=== PATIENT | male | born 1960 | race Caucasian/White ===

== ENCOUNTER 2016-10-05 20:20 | Outpatient (CLI) | payer MEDICARE ==
[~2016-10-05 20:20] MED LIST: ASP325TEC PO; DABI150C2 PO; DILT240C PO; FLEC100T2 PO
--- OUTSIDE RECORDS SUMMARY | 2016-10-05 21:21 | XMS REPORT | Continuity of Care Document ---
Author Author [facility] Organization [facility] Address Unknown Phone Unavailable Care Team Providers Care Corn Detasseler Machine Operator Name Role Phone Chuck Melgar PCP [phone] Source Comments Some departments are not documenting in the electronic medical record. If you do not see the information that you expected, contact Release of Information in the Health Information Management department at [phone] for further assistance in locating additional records.[facility] Active Allergies and Adverse Reactions No Known Allergies Current Medications Prescription Sig. Disp. Refills Start End Date Status Date aspirin 325 mg tablet Take 325 mg by mouth Active daily. diltiazem CD (CARDIZEM Take 1 Cap by mouth 30 Cap 04/20/20 Active CD) 240 mg capsule daily. 14 dabigatran (PRADAXA) 150 Take 1 Cap by mouth twice 60 Cap 05/18/20 Active mg capsule daily. 14 flecainide (TAMBOCOR) 100 Take 1 Tab by mouth twice 60 Tab Active mg tablet daily. Do not start 14 Flecainide until you have completed 21 days of twice daily Pradaxa. Active Problems Problem Noted Date HTN (hypertension) 04/16/2014 Atrial fibrillation (HCC) 04/16/2014 Overview: [facility]20147[facility], Moderate concentric LV Hypertrophy, Unable to assess EF due to suboptimal windows. 03/02/14-Holter ECG Report- Atrial Fibrillation/Atrial Flutter with Tachycardia (rates as high as 175 bpm) and Bradycardic (rates as low as 35 bpm) The average heart rate was 65 bpm. 232 pauses greater than 2.0 seconds with the longest being 3.09 seconds. Isolate PVC's, Isolated Couplets, 4 V-Runs with the longest being 10 beats @ 189 bpm. Isolated runs of V-Bigeminy with the longest being 10 seconds. No symptoms noted. 04/29/14 Regadenoson Thallium: SUMMARY/OPINION: 1. This study is normal and represents low probability for significant inducible myocardial ischemia. 2. There are no perfusion abnormalities identified on this study. 3. The calculated LVEF is reduced & likely underestimated as a result of the atrial fibrillation and difficulty gating this study as noted above. 4. All myocardial segments appear viable. 5. High risk scintigraphic features are absent. 6. There are no prior studies available for direct comparison. LIZZY (obstructive sleep apnea) 04/16/2014 Social History Tobacco Use Types Packs/Day Years Used Date Never Smoker Smokeless Tobacco: Never Used Alcohol Use Drinks/Week oz/Week Comments No Last Filed Vital Signs Vital Sign Reading Time Taken Blood Pressure 118/80 05/18/2014 11:14 AM CDT Pulse 105 05/18/2014 11:14 AM CDT Temperature - - Respiratory Rate - - Height 1.778 m (5' 10") 05/18/2014 11:10 AM CDT Weight 199.9 kg (440 lb 11.2 oz) 05/18/2014 11:10 AM CDT Body Mass Index 63.23 05/18/2014 11:10 AM CDT Oxygen Saturation - - Plan of Care Health Maintenance Due Date Last Done Comments Physical (Comprehensive) 1965 Exam Pertussis Vaccine 1969 Tetanus Vaccine 1975 Colorectal Cancer 2008 Screening Influenza Vaccine 05/10/2016 Results from Last 3 Months Not on file
== END 2016-10-06 06:45 | disposition home or self-care (01) ==
LOC: SLEEP 20:20
PROVIDERS: ATTEND Nurse Practitioner
DX: G47.10 Hypersomnia, unspecified (principal); I10 Essential (primary) hypertension
CPT/HCPCS: 95810

== ENCOUNTER → 2016-12-10 | Outpatient (CLI) | payer MEDICARE ==
--- NOTE | 2016-12-10 15:56 | Diagnostic Imaging Report ---
Sacrum and coccyx. INDICATION: Tailbone pain. FINDINGS: AP and lateral views were obtained. There are no prior studies available for comparison. This exam is less than optimal due to the patient's body habitus. There is no obvious fracture, dislocation, or acute bony abnormality evident. There is moderate symmetrical sclerosis of the sacroiliac joints. The soft tissues are unremarkable. IMPRESSION: There is no evidence for an acute bony abnormality on this suboptimal exam. Dictated by: Dictated on workstation # [id number]
== END ==
LOC: RAD 13:41
PROVIDERS: ATTEND Nurse Practitioner
DX: M53.3 Sacrococcygeal disorders, not elsewhere classified (principal)
CPT/HCPCS: 72220

== ENCOUNTER → 2017-04-22 | Outpatient (CLI) | payer MEDICARE, OTHER ==
--- NOTE | 2017-04-22 14:29 | Diagnostic Imaging Report ---
Retroperitoneal ultrasound. INDICATION: Renal insufficiency. There are no previous exams available for comparison. The study is less than optimal due to patient's body habitus. By history the patient has a diagnosis of right renal agenesis. The left kidney was visualized although not well imaged. The left kidney measured 12.0 x 7.9 x 6.3 cm. There is no sign of a solid renal mass or of hydronephrosis involving the left kidney. The renal cortex is normal in thickness and echogenicity. The bladder was not visualized. IMPRESSION: 1. There is no evidence for a solid renal mass or for an acute abnormality of the left kidney. The left kidney was difficult to visualize, however, due to the patient's body habitus. 2. By history the right kidney is congenitally absent. 3. The bladder was not identified. Dictated by: Dictated on workstation # [id number]
== END ==
LOC: RAD 13:13
PROVIDERS: ATTEND Family Medicine
DX: N28.9 Disorder of kidney and ureter, unspecified (principal); Q60.0 Renal agenesis, unilateral
CPT/HCPCS: 76770

== ENCOUNTER → 2017-04-22 | Outpatient (CLI) | payer MEDICARE, OTHER | LOC: CARD 11:29 | PROVIDERS: ATTEND Nurse Practitioner Family | DX: I48.91 Unspecified atrial fibrillation (principal) ==

== ENCOUNTER → 2017-04-25 | Outpatient (CLI) | payer MEDICARE | LOC: CARD 09:07 | PROVIDERS: ATTEND Internal Medicine Cardiovascular Disease | DX: I48.91 Unspecified atrial fibrillation (principal); I10 Essential (primary) hypertension; R00.2 Palpitations; G47.33 Obstructive sleep apnea (adult) (pediatric) | CPT/HCPCS: 93306 ==

== ENCOUNTER 2018-04-16 03:17 | Emergency (ER) | payer MEDICARE ==
[~2018-04-16] VITALS: Ht 162.6 cm; Wt 181.4 kg
--- OUTSIDE RECORDS SUMMARY | 2018-04-16 03:23 | XMS REPORT | Clinical Summary ---
Author Author [facility] Organization [facility] Address Unknown Phone Unavailable Care Team Providers Care Conductor/Engineer Name Role Phone Chuck Melgar DO PCP Source Comments Some departments are not documenting in the electronic medical record. If you do not see the information that you expected, contact Release of Information in the Health Information Management department at [phone] for further assistance in locating additional records.[facility] Allergies No Known Allergies Current Medications Prescription Sig. [...] (hypertension) 04/16/2014 Atrial fibrillation (HCC) 04/16/2014 Overview: [facility]20148705[facility], Moderate concentric LV Hypertrophy, [...] direct comparison. LIZZY (obstructive sleep apnea) 04/16/2014 Family History Medical History Relation Name Comments Coronary Artery Disease Brother Coronary Artery Disease Father Stroke Father Coronary Artery Disease Sister Relation Name Status Comments Brother Alive Father Alive Sister Alive Social History Tobacco Use Types Packs/Day Years Used Date Never Smoker Smokeless Tobacco: Never Used Alcohol Use Drinks/Week oz/Week Comments No Sex Assigned at Date Recorded Not on file Last Filed Vital Signs Vital Sign Reading Time Taken Blood Pressure 118/80 05/18/2014 11:14 AM CDT Pulse 105 05/18/2014 11:14 AM CDT Temperature - - Respiratory Rate - - Oxygen Saturation - - Inhaled Oxygen - - Concentration Weight 199.9 kg (440 lb 11.2 oz) 05/18/2014 11:10 AM CDT Height 177.8 cm (5' 10") 05/18/2014 11:10 AM CDT Body Mass Index 63.23 05/18/2014 11:10 AM CDT Plan of Treatment Health Maintenance Due Date Last Done Comments HEPATITIS C SCREENING 1958 PHYSICAL (COMPREHENSIVE) 1965 EXAM PERTUSSIS VACCINE 1969 HIV SCREENING 1973 TETANUS VACCINE 1975 COLORECTAL CANCER 2008 SCREENING SHINGLES RECOMBINANT 2008 VACCINE (1 of 2) INFLUENZA VACCINE 06/09/2018 Results Not on filefrom Last 3 Months
--- OUTSIDE RECORDS SUMMARY | 2018-04-16 03:23 | XMS REPORT ---
Author Author ASHLIE WISE [facility] Address Unknown Care Team Providers Care Mailhouse Operator Name Role Phone ASHLIE WISE Unavailable PROBLEMS Type Condition ICD9-CM Code [id number] Code Onset Dates Condition Status SNOMED Code Problem Dental examination Z01.20 Active 711120511 Assessment Dental examination Z01.20 Apr, Active [id number] ALLERGIES Substance Reaction Event Type Date Status N.K.D.A. Unknown Non Drug Allergy Apr, Unknown SOCIAL HISTORY No smoking Hx information available PLAN OF CARE VITAL SIGNS Blood pressure systolic 126 mmHg 2016-04-26 Blood pressure diastolic 88 mmHg 2016-04-26 MEDICATIONS Medication Instructions Dosage Frequency Start Date End Date Duration Status SAVision Active RESULTS No Results PROCEDURES Procedure Date Ordered Related Diagnosis Body Site INTRAORL-PERIAPICAL 1 FILM 50125 Apr 26, 2016 BITEWING - SINGLE FILM Apr 26, 2016 IMMUNIZATIONS No Known Immunizations
--- OUTSIDE RECORDS SUMMARY | 2018-04-16 03:23 | XMS REPORT ---
Author Author ASHLIE WISE [facility] Address Unknown Care Team Providers Care Building Stonecutter Name Role Phone ASHLIE WISE Unavailable PROBLEMS Unknown Problems ALLERGIES No Information ENCOUNTERS Encounter Location Date Diagnosis [facility] [place] [address] [id number] [place] [id number] Aug, [facility] [address] [id number], [place] [address] Aug, [facility] [address] [id number] [id number] Apr, Dental examination Z01.20 [facility] [address] [id number][place] [id number] Mar, Dental examination Z01.20 [facility] [address] [id number] [id number] Feb, Dental examination Z01.20 [facility] [address] [id number] [id number] January, Dental caries K02.9 [facility] [address] [id number][place] [id number] Dec, Dental examination Z01.20 IMMUNIZATIONS No Known Immunizations SOCIAL HISTORY Never Assessed REASON FOR VISIT TE PLAN OF CARE VITAL SIGNS MEDICATIONS Unknown Medications RESULTS No Results PROCEDURES No Known procedures INSTRUCTIONS MEDICATIONS ADMINISTERED No Known Medications MEDICAL (GENERAL) HISTORY Type Description Date Medical History Arthirits Medical History High Blood Pressure Surgical History Left Knee replaced 30 years ago
--- OUTSIDE RECORDS SUMMARY | 2018-04-16 03:23 | XMS REPORT ---
Author Author ASHLIE WISE [facility] Address Unknown Care Team Providers Care Strike Out Machine Operator Name Role Phone ASHLIE WISE Unavailable PROBLEMS Type Condition ICD9-CM Code BGI46-PV Code Onset Dates Condition Status SNOMED Code Problem Dental examination Z01.20 Active [id number] ALLERGIES Unknown Allergies SOCIAL HISTORY No smoking Hx information available PLAN OF CARE VITAL SIGNS MEDICATIONS Unknown Medications RESULTS No Results PROCEDURES No Known procedures IMMUNIZATIONS No Known Immunizations
--- OUTSIDE RECORDS SUMMARY | 2018-04-16 03:24 | XMS REPORT | Continuity of Care Document ---
Author Author [facility] Organization [facility] Address Unknown Phone Unavailable Allergies Active Description Code Type Severity Reaction Onset Reported/Identified Relationship to Patient Clinical Status Yes No Known Drug Allergies [id number] Drug Allergy Unknown N/A 06/28/2014 Medications There is no data. Problems Date Dx Coded Attending Type Code Diagnosis Diagnosed By 06/28/2014 RALPH BERGERON MD Ot 272.4 HYPERLIPIDEMIA NEC/NOS 06/28/2014 RALPH BERGERON MD Ot 278.01 MORBID OBESITY 06/28/2014 RALPH BERGERON MD Ot 327.23 OBSTRUCTIVE SLEEP APNEA (ADULT) (PEDIATR 06/28/2014 RALPH BERGERON MD Ot 397.0 TRICUSPID VALVE DISEASE 06/28/2014 RALPH BERGERON MD Ot 401.9 HYPERTENSION NOS 06/28/2014 RALPH BERGERON MD Ot 424.0 MITRAL VALVE DISORDER 06/28/2014 RALPH BERGERON MD Ot 427.31 ATRIAL FIBRILLATION 06/28/2014 RALPH BERGERON MD Ot 496 CHR AIRWAY OBSTRUCT NEC 06/28/2014 RALPH BERGERON MD Ot V58.61 ANTICOAGULANTS,LT,CURRENT USE 06/28/2014 RALPH BERGERON MD Ot V58.69 OTH MED,LT,CURRENT USE 06/28/2014 RALPH BERGERON MD Ot V85.44 BODY MASS INDEX 60.0-69.9, ADULT 08/31/2016 DELLA BURNETT DO Ot 274.9 GOUT NOS 08/31/2016 DELLA BURNETT DO Ot 719.47 JOINT PAIN-ANKLE 08/31/2016 DELLA BURNETT DO Ot 278.00 OBESITY, NOS 08/31/2016 DELLA BURNETT DO C Ot 288.60 LEUKOCYTOSIS, UNSPECIFIED 08/31/2016 LEX KHALIL DELLA C Ot 401.9 HYPERTENSION NOS 08/31/2016 EATDELLA VILLATORO DO Ot 427.9 CARDIAC DYSRHYTHMIA NOS 08/31/2016 DELLA BURNETT DO Ot V70.0 ROUTINE MEDICAL EXAM 09/27/2016 EATON DO, DELLA Llanos Ot 274.9 GOUT NOS 09/27/2016 EATON DO, DELLA Llanos Ot 719.47 JOINT PAIN-ANKLE 09/27/2016 EATON DO, DELLA Llanos Ot 278.00 OBESITY, NOS 09/27/2016 EATON DO, DELLA Llanos Ot 288.60 LEUKOCYTOSIS, UNSPECIFIED 09/27/2016 EATON DO, DELLA Llanos Ot 401.9 HYPERTENSION NOS 09/27/2016 EATON DO, DELLA Llanos Ot 427.9 CARDIAC DYSRHYTHMIA NOS 09/27/2016 EATON DO, DELLA lLanos Ot V70.0 ROUTINE MEDICAL EXAM 10/06/2016 KAMRON JESSICA COMPENSATION COORDINATOR Ot G47.10 HYPERSOMNIA, UNSPECIFIED 10/06/2016 KAMRON JESSICA COMPENSATION COORDINATOR Ot I10 ESSENTIAL (PRIMARY) HYPERTENSION 10/08/2016 KAMRON JESSICA COMPENSATION COORDINATOR Ot G47.10 HYPERSOMNIA, UNSPECIFIED 10/08/2016 KAMRON JESSICA COMPENSATION COORDINATOR Ot I10 ESSENTIAL (PRIMARY) HYPERTENSION 01/14/2017 MARIA INES JEFFRIES COMPENSATION COORDINATOR Ot M53.3 SACROCOCCYGEAL DISORDERS, NOT ELSEWHERE 02/08/2017 MARIA INES JEFFRIES COMPENSATION COORDINATOR Ot M53.3 SACROCOCCYGEAL DISORDERS, NOT ELSEWHERE 04/16/2017 EATON DODELLA Ot 274.9 GOUT NOS 04/16/2017 EATON DO, DELLA Llanos Ot 719.47 JOINT PAIN-ANKLE 04/16/2017 EATON DO, DELLA Llanos Ot 278.00 OBESITY, NOS 04/16/2017 EATON DO, DELLA Llanos Ot 288.60 LEUKOCYTOSIS, UNSPECIFIED 04/16/2017 EATON DODELLA Ot 401.9 HYPERTENSION NOS 04/16/2017 EATON DO, DELLA Llanos Ot 427.9 CARDIAC DYSRHYTHMIA NOS 04/16/2017 EATON DO, DELLA Llanos Ot V70.0 ROUTINE MEDICAL EXAM 04/16/2017 MARIA INES JEFFRIES COMPENSATION COORDINATOR Ot M53.3 SACROCOCCYGEAL DISORDERS, NOT ELSEWHERE 04/22/2017 TANESHAER ALVARO KHALIL Ot N18.9 CHRONIC KIDNEY DISEASE, UNSPECIFIED 04/22/2017 EATON DO, DELLA Llanos Ot 274.9 GOUT NOS 04/22/2017 EATON DO, DELLA Llanos Ot 719.47 JOINT PAIN-ANKLE 04/22/2017 DELLA BURNETT DO Ot 278.00 OBESITY, NOS 04/22/2017 EATDELLA VILLATORO DO Ot 288.60 LEUKOCYTOSIS, UNSPECIFIED 04/22/2017 DELLA BURNETT DO Ot 401.9 HYPERTENSION NOS 04/22/2017 HAKEEMON DELLA KHALIL Ot 427.9 CARDIAC DYSRHYTHMIA NOS 04/22/2017 LEX DELLA KHALIL Ot V70.0 ROUTINE MEDICAL EXAM 04/22/2017 MARIA INES JEFFRIES COMPENSATION COORDINATOR Ot M53.3 SACROCOCCYGEAL DISORDERS, NOT ELSEWHERE 04/22/2017 ORENDER DO, ALVARO S Ot N18.9 CHRONIC KIDNEY DISEASE, UNSPECIFIED 04/24/2017 MARIA INES JEFFRIES COMPENSATION COORDINATOR Ot M53.3 SACROCOCCYGEAL DISORDERS, NOT ELSEWHERE 04/24/2017 ORENDER DO, ALVARO S Ot N28.9 DISORDER OF KIDNEY AND URETER, UNSPECIFI 04/24/2017 ORENDER DO, ALVARO S Ot Q60.0 RENAL AGENESIS, UNILATERAL 04/24/2017 ROSA LAZARO Ot I48.91 UNSPECIFIED ATRIAL FIBRILLATION 04/25/2017 MARIA INES JEFFRIES COMPENSATION COORDINATOR Ot M53.3 SACROCOCCYGEAL DISORDERS, NOT ELSEWHERE 04/25/2017 ORENDER DO, ALVARO S Ot N28.9 DISORDER OF KIDNEY AND URETER, UNSPECIFI 04/25/2017 ORENDER DO, ALVARO S Ot Q60.0 RENAL AGENESIS, UNILATERAL 04/25/2017 ROSA LAZARO Ot I48.91 UNSPECIFIED ATRIAL FIBRILLATION 04/28/2017 ORENDER DO, ALVARO S Ot N28.9 DISORDER OF KIDNEY AND URETER, UNSPECIFI 04/28/2017 ORENDER DO, ALVARO S Ot Q60.0 RENAL AGENESIS, UNILATERAL 05/10/2017 DELLA BURNETT DO Ot 274.9 GOUT NOS 05/10/2017 DELLA BURNETT DO Ot 719.47 JOINT PAIN-ANKLE 05/10/2017 DELLA BURNETT DO Ot 278.00 OBESITY, NOS 05/10/2017 DELLA BURNETT DO Ot 288.60 LEUKOCYTOSIS, UNSPECIFIED 05/10/2017 DELLA BURNETT DO Ot 401.9 HYPERTENSION NOS 05/10/2017 DELLA BURNETT DO Ot 427.9 CARDIAC DYSRHYTHMIA NOS 05/10/2017 DELLA BURNETT DO Ot V70.0 ROUTINE MEDICAL EXAM 05/10/2017 MARIA INES JEFFRIES Bailee CRANE Ot M53.3 SACROCOCCYGEAL DISORDERS, NOT ELSEWHERE 05/10/2017 ADRIANROGERALLISON BOUDREAUX DOLINE S Ot N28.9 DISORDER OF KIDNEY AND URETER, UNSPECIFI 05/10/2017 ADRIANNDER , ALVARO S Ot Q60.0 RENAL AGENESIS, UNILATERAL 05/10/2017 ROSA LAZARO Ot I48.91 UNSPECIFIED ATRIAL FIBRILLATION 05/15/2017 ADRIANNDER DO, ALVARO S Ot N28.9 DISORDER OF KIDNEY AND URETER, UNSPECIFI 05/15/2017 ADRIANNDJANUSZ KHALIL ALVARO S Ot Q60.0 RENAL AGENESIS, UNILATERAL 05/17/2017 RALPH BERGERON MD Ot G47.33 OBSTRUCTIVE SLEEP APNEA (ADULT) (PEDIATR 05/17/2017 RALPH BERGERON MD Ot I10 ESSENTIAL (PRIMARY) HYPERTENSION 05/17/2017 RALPH BERGERON MD Ot I48.91 UNSPECIFIED ATRIAL FIBRILLATION 05/17/2017 RALPH BERGERON MD Ot R00.2 PALPITATIONS 06/06/2017 TANESHASTARR BOUDREAUX DOQUELINE S Ot N28.9 DISORDER OF KIDNEY AND URETER, UNSPECIFI 06/06/2017 STARR SAMANIEGO DOQUELINE S Ot Q60.0 RENAL AGENESIS, UNILATERAL 06/06/2017 RALPH BERGERON MD Ot G47.33 OBSTRUCTIVE SLEEP APNEA (ADULT) (PEDIATR 06/06/2017 RALPH BERGERON MD Ot I10 ESSENTIAL (PRIMARY) HYPERTENSION 06/06/2017 RALPH BERGERON MD Ot I48.91 UNSPECIFIED ATRIAL FIBRILLATION 06/06/2017 RALPH BERGERON MD Ot R00.2 PALPITATIONS 06/07/2017 ROSA LAZARO Ot I48.91 UNSPECIFIED ATRIAL FIBRILLATION 07/01/2017 ROSA LAZARO Ot I48.91 UNSPECIFIED ATRIAL FIBRILLATION Procedures There is no data. Results There is no data. Encounters ACCT No. Visit Date/Time Discharge Status Pt. Type Provider Facility Loc./Unit Complaint [id number] 04/25/2017 09:07:00 04/25/2017 23:59:59 CLS Outpatient RALPH BERGERON MD [facility] CARD I48.91 [id number] 04/22/2017 13:13:00 04/22/2017 23:59:59 CLS Outpatient ALVARO SAMANIEGO DO [facility] RAD RENAL INSUFFIENCY [id number] 04/22/2017 11:29:00 04/22/2017 23:59:59 CLS Outpatient ROSA LAZARO CIGARETTE PACKER [facility] CARD HX ATRIAL FIB [id number] 02/20/2017 10:16:00 02/20/2017 23:59:59 CLS Preadmit ALVARO SAMANIEGO DO [facility] RAD RENAL INSUFFICIENCY [id number] 12/10/2016 13:41:00 12/10/2016 23:59:59 CLS Outpatient MARIA INES JEFFRIES COMPENSATION COORDINATOR [facility] RAD SACRUM/COCCYX PAIN [id number] 10/05/2016 20:20:00 10/06/2016 06:45:00 DIS Outpatient KAMRON JESSICA COMPENSATION COORDINATOR [facility] SLEEP OBSERVED APNEAS, SNORING, HYPERTENSION [id number] 06/28/2014 07:36:00 06/28/2014 14:25:00 DIS Outpatient RALPH BERGERON MD [facility] CATH AFIB, [id number] 02/15/2014 15:38:00 02/15/2014 23:59:59 CLS Outpatient DELLA BURNETT DO [facility] CARD ARRHYTHMIA,HTN,OBESITY [id number] 02/05/2013 14:43:00 02/05/2013 23:59:59 CLS Outpatient DELLA BURNETT DO [facility] RAD GOUT, RT FOOT ANKLE PAIN FOR SEVERAL WEEKS [id number] 05/28/2017 08:33:00 05/28/2017 23:59:00 DIS Outpatient CHAZ ROBERTSON 08/201704/02/2018 09:19:22 04/02/2018 23:59:59 CLS Outpatient Alvaro Samaniego
[2018-04-16] MEDS ORDERED: KETOROLAC 30 MG/ML VIAL IVP STA (03:26)
[2018-04-16] MEDS ORDERED: LACTATED RINGERS 1,000 ML IV ONE (03:26)
[2018-04-16] MEDS ORDERED: ONDANSETRON 4 MG/2 ML (SDV) Z0FRAN IVP ONE (03:30)
[2018-04-16] MEDS ORDERED: HYOSCYAMINE 0.125 MG (LEVSIN) TAB SL ONE (03:30)
[2018-04-16 04:00] LABS: BASOPHILS % (AUTO) 0 % (0-10); EOSINOPHILS % (AUTO) 0 % (0-10); HEMATOCRIT 47 % (40-54); HEMOGLOBIN 16.5 G/DL (13.3-17.7); LYMPHOCYTES % (AUTO) 4 % (12-44); MEAN CORPUSCULAR HEMOGLOBIN 30 PG (25-34); MEAN CORPUSCULAR HGB CONC 35 G/DL (32-36); MEAN CORPUSCULAR VOLUME 84 FL (80-99); MEAN PLATELET VOLUME 11.8 FL (7.4-10.4); MONOCYTES # (AUTO) 1.5 X 10^3 (0.0-1.0); MONOCYTES % (AUTO) 6 % (0-12); NEUTROPHILS # (AUTO) 21.4 X 10^3 (1.8-7.8); NEUTROPHILS % (AUTO) 89 % (42-75); PLATELET COUNT 327 10^3/uL (130-400); RED BLOOD COUNT 5.55 10^6/uL (4.35-5.85); RED CELL DISTRIBUTION WIDTH 14.2 % (10.0-14.5)
[2018-04-16 04:13] LABS: INR 1.4 (0.8-1.4); PROTHROMBIN TIME PATIENT 17.3 SEC (12.2-14.7)
[2018-04-16 04:24] LABS: ALANINE AMINOTRANSFERASE 225 U/L (0-55); ALBUMIN 4.2 GM/DL (3.2-4.5); ALKALINE PHOSPHATASE 362 U/L (40-136); AMYLASE 41 U/L (25-125); BILIRUBIN,TOTAL 4.3 MG/DL (0.1-1.0); BUN/CREATININE RATIO 15; CALCIUM 11.1 MG/DL (8.5-10.1); CARBON DIOXIDE 22 MMOL/L (21-32); CHLORIDE 95 MMOL/L (98-107); CREATININE SERUM 2.14 MG/DL (0.60-1.30); GFR ESTIMATED 32; GLUCOSE 210 MG/DL (70-105); LIPASE 95 U/L (8-78); POTASSIUM 3.6 MMOL/L (3.6-5.0); SODIUM 137 MMOL/L (135-145); TOTAL PROTEIN 8.7 GM/DL (6.4-8.2)
[2018-04-16 04:30] LABS: BAND NEUTROPHILS 3 %; BASOPHILS % (MANUAL) 0 %; EOSINOPHILS % (MANUAL) 0 %; LYMPHOCYTES % (MANUAL) 4 %; MONOCYTES % (MANUAL) 5 %; NEUTROPHILS % (MANUAL) 88 %; RBC MORPH NORMAL
[2018-04-16] MEDS ORDERED: fentaNYL INJECTION 100 MCG/2 ML AMP ONE (04:32)
[2018-04-16] MEDS ORDERED: NS IV 1000 ML 1,000 ML IV ONE (04:48)
--- NOTE | 2018-04-16 05:27 | ED Abdominal Pain ---
General Chief Complaint: Abdominal/GI Problems Stated Complaint: VOMITING,SOB Nursing Triage Note: VERBALIZED ABDOMINAL PAIN X1 WEEK. STATES WORSENED TODAY. VOMITTING "ALOT" Sepsis Screen: No Definite Risk Source of Information: Patient History of Present Illness Date Seen by Provider: Apr 16, 2018 Time Seen by Provider: 03:15 Initial Comments PT ARRIVES VIA POV FROM HOME, NEEDS WHEELCHAIR TO GET OUT OF VEHICLE AND INTO ER PT STATES "I BEEN SICK" "MY STOMACH HERE ( POINTS TO MID AND UPPER ABDOMEN), VOMITING, SHORT OF BREATH" STATES HE HAS BEEN SICK FOR A WEEK C/O SEVERE UPPER ABDOMINAL PAIN C/O NAUSEA AND VOMITING --HAS VOMITED "AT LEAST 24 TIMES" IN LAST 24 HOURS. STATES HE CANNOT KEEP ANYTHING DOWN--VOMITS EVERY TIME HE TRIES TO EAT OR DRINK- -AT [employer], 2 EGGS, BREAD AND PIECE OF CHICKEN AROUND 1900 TONIGHT AND THREW IT ALL BACK UP HAD DIARRHEA X 1 TODAY. HAS SUBJECTIVE FEVER, PROFUSE SWEATING AND CHILLS ALL WEEK--HAS NOT CHECKED TEMPERATURE AT ANY TIME, NOR TAKEN ANYTHING FOR FEVER OR PAIN HAS HAD DECREASED URINE OUTPUT AND URINE HAS BEEN VERY DARK, BUT NO PAIN ON URINATION NO CHEST PAIN STATES HE IS SHORT OF BREATH, ESPECIALLY WHEN PAIN IS SEVERE C/O CRAMPING IN HIS BACK AND ALSO IN RLQ NO HISTORY OF SIMILAR NO KNOWN SICK CONTACTS OR SUSPICIOUS FOODS. ONLY PRIOR ABDOMINAL SURGERY IS VENTRAL HERNIA REPAIR WITH MESH YEARS AGO. PT HAS HISTORY OF CHRONIC ATRIAL FIBRILLATION AND IS ON ANTICOAGULANT--PT DOES NOT KNOW NAME OF MEDICATION ( PT IS ON PRADAXA, FLECANIDE AND DILTIAZEM, PER MED RECONCILIATION) PCP: DR. MEAD PORTFOLIO ADMINISTRATOR: DR. BERGERON Allergies and Home Medications Allergies Coded Allergies: No Known Drug Allergies (Unverified , 06/28/14) Home Medications Dabigatran Etexilate Mesylate 150 Mg Capsule, 150 MG PO BID, (Reported) Diltiazem Hcl 240 Mg Cap.sr.24h, 240 MG PO DAILY, (Reported) Flecainide Acetate 100 Mg Tablet, 100 MG PO BID, (Reported) Patient Home Medication List Home Medication List Reviewed: Yes Review of Systems Constitutional: see HPI, chills, diaphoresis, fever, weakness Respiratory: See HPI, Shortness of Air, SOA With Exertion, SOA at Rest Cardiovascular: Denies Chest Pain, Denies Edema, Denies Lightheadedness, Denies Palpitations, Denies Syncope Gastrointestinal: See HPI, Abdominal Pain, Diarrhea, Nausea, Poor Appetite, Poor Fluid Intake, Vomiting Genitourinary: See HPI Musculoskeletal: no symptoms reported, back pain Skin: no symptoms reported Psychiatric/Neurological: No Symptoms Reported Endocrine: No Symptoms Reported Hematologic/Lymphatic: No Symptoms Reported Past Omknbda-Kzasek-Myikiq Hx Patient Social History Alcohol Use: Denies Use Recreational Drug Use: No Smoking Status: Never a Smoker Recent Foreign Travel: No Contact w/Someone Who Travel: No Recent Infectious Disease Expo: No Physical Abuse: No Sexual Abuse: No Mistreated: No Past Medical History Surgeries: Yes (VENTRAL HERNIA REPAIR WITH MESH; OPEN LEFT KNEE SURGERY) Abdominal, Orthopedic Respiratory: No Cardiac: Yes Atrial Fibrillation, Hypertension Neurological: No Genitourinary: No Gastrointestinal: Yes Abdominal Hernia Musculoskeletal: No Endocrine: Yes (MORBID OBESITY) Cancer: No Psychosocial: No Nursing Suicide Risk Score: 0 Integumentary: No Blood Disorders: No Physical Exam Vital Signs Vital Signs - First Documented 04/16/18 04/16/18 03:20 03:50 Temp 98.0 Pulse 128 Resp 20 B/P (MAP) 128/100 (109) Pulse Ox 92 O2 Delivery Room Air O2 Flow Rate 2.00 Capillary Refill : Less Than 3 Seconds Height/Weight/BMI Height: 5'4.00" Weight: 400lbs. oz. 181.686769ou; BMI Method:Stated General Appearance: obese (MORBIDLY OBESE. MOAINING VERY LOUDLY, ROLLING FROM SIDE TO SIDE, CANNOT GET COMFORTABLE. MILD TO MODERATELY DYSPNEIC. ) HEENT: PERRL/EOMI, other (ORAL MUCOSA DRY) Respiratory: normal breath sounds (BUT DIMINISHED IN BASES), respiratory distress (MILD TO MODERATE DYSPNEA) Cardiovascular: no murmur, tachycardia, irregularly irregular Gastrointestinal: other (OBESE, WITH LARGE PANNUS DOWN TO KNEES AND MORE ON RIGHT SIDE. UPPER ABDOMEN DIFFUSELY TENDER, ESPECIALLY IN MID UPPER ABDOMEN. BOWEL SOUNDS RARE AND HIGH-PITCHED. UPPER ABDOMEN FEELS FIRM,BUT VERY DIFFICULT EXAM DUE TO BODY HABITUS. ) Extremities: pedal edema (TRACE BILATERALLY), slow capillary refill (IN HANDS AND FEET--BOTH ARE COOL. 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, no motor/sensory deficits, alert, oriented x 3 Skin: normal color, damp (AND WARM) Focused Exam Lactate Level 04/16/18 03:45: Lactic Acid Level 2.92*H 04/16/18 05:45: Lactic Acid Level 3.47*H Lactic Acid Level Laboratory Tests Test 04/16/18 03:45 04/16/18 05:45 Lactic Acid Level 2.92 MMOL/L (0.50-2.00) *H 3.47 MMOL/L (0.50-2.00) *H Progress/Results/Core Measures Results/Orders Lab Results Laboratory Tests Test 04/16/18 03:45 04/16/18 05:45 Range/Units White Blood Count 24.0 H 4.3-11.0 10^3/uL Red Blood Count 5.55 4.35-5.85 10^6/uL Hemoglobin 16.5 13.3-17.7 G/DL Hematocrit 47 40-54 % Mean Corpuscular Volume 84 80-99 FL Mean Corpuscular Hemoglobin 30 25-34 PG Mean Corpuscular Hemoglobin Concent 35 32-36 G/DL Red Cell Distribution Width 14.2 10.0-14.5 % Platelet Count 327 130-400 10^3/uL Mean Platelet Volume 11.8 H 7.4-10.4 FL Neutrophils (%) (Auto) 89 H 42-75 % Lymphocytes (%) (Auto) 4 L 12-44 % Monocytes (%) (Auto) 6 0-12 % Eosinophils (%) (Auto) 0 0-10 % Basophils (%) (Auto) 0 0-10 % Neutrophils # (Auto) 21.4 H 1.8-7.8 X 10^3 Lymphocytes # (Auto) 1.0 1.0-4.0 X 10^3 Monocytes # (Auto) 1.5 H 0.0-1.0 X 10^3 Eosinophils # (Auto) 0.0 0.0-0.3 10^3/uL Basophils # (Auto) 0.0 0.0-0.1 10^3/uL Neutrophils % (Manual) 88 % Lymphocytes % (Manual) 4 % Monocytes % (Manual) 5 % Eosinophils % (Manual) 0 % Basophils % (Manual) 0 % Band Neutrophils 3 % Blood Morphology Comment NORMAL Prothrombin Time 17.3 H 12.2-14.7 SEC INR Comment 1.4 0.8-1.4 Activated Partial Thromboplast Time 35 24-35 SEC Sodium Level 137 135-145 MMOL/L Potassium Level 3.6 3.6-5.0 MMOL/L Chloride Level 95 L 98-107 MMOL/L Carbon Dioxide Level 22 21-32 MMOL/L Anion Gap 20 H 5-14 MMOL/L Blood Urea Nitrogen 33 H 7-18 MG/DL Creatinine 2.14 H 0.60-1.30 MG/DL Estimat Glomerular Filtration Rate 32 BUN/Creatinine Ratio 15 Glucose Level 210 H 70-105 MG/DL Lactic Acid Level 2.92 *H 3.47 *H 0.50-2.00 MMOL/L Calcium Level 11.1 H 8.5-10.1 MG/DL Corrected Calcium 10.9 H 8.5-10.1 MG/DL Total Bilirubin 4.3 H 0.1-1.0 MG/DL Aspartate Amino Transf (AST/SGOT) 191 H 5-34 U/L Alanine Aminotransferase (ALT/SGPT) 225 H 0-55 U/L Alkaline Phosphatase 362 H 40-136 U/L Troponin I < 0.30 <0.30 NG/ML Total Protein 8.7 H 6.4-8.2 GM/DL Albumin 4.2 3.2-4.5 GM/DL Amylase Level 41 25-125 U/L Lipase 95 H 8-78 U/L My Orders Orders - LONNY ZAMUDIO DO Saline Lock/Iv-Start (04/16/18 03:26) Monitor-Rhythm Ecg Trace Only (04/16/18 03:) Amylase (04/16/18:) Cbc With Automated Diff (04/16/18:) Comprehensive Metabolic Panel (04/16/18:) Lactic Acid Analyzer (04/16/18:) Lipase (04/16/18:) Protime With Inr (04/16/18:) Partial Thromboplastin Time (04/16/18:) Troponin I (04/16/18:) Ua Culture If Indicated (04/16/18:) Blood Culture (04/16/18:) Saline Lock/Iv-Start (04/16/18 03:26) Lactated Ringers (Lr 1000 Ml Iv Solution (8/8/18 03:26) Ondansetron Injection (Zofran Injectio (04/16/18 03:30) Hyoscyamine Sl Tablet (Levsin Sl Tablet) (04/16/18 03:30) Ketorolac Injection (Toradol Injection) (04/16/18 03:26) Manual Differential (04/16/18 03:45) Fentanyl Injection (Sublimaze Injection (04/16/18 04:32) Saline Lock/Iv-Start (04/16/18 04:48) Ns Iv 1000 Ml (Sodium Chloride 0.9%) (04/16/18 04:48) Fentanyl Injection (Sublimaze Injection (04/16/18 05:31) Ekg Tracing (04/16/18 05:31) O2 (04/16/18 05:31) Medications Given in ED Current Medications Medications Dose Ordered Sig/Magaly Route Start Time Stop Time Status Last Admin Dose Admin Fentanyl Citrate 100 mcg STK-MED ONCE .ROUTE 04/16/18 04:32 04/16/18 04:35 DC 04/16/18 04:44 100 MCG Hyoscyamine Sulfate 0.25 mg ONCE ONCE SL 04/16/18 03:30 04/16/18 03:31 DC 04/16/18 03:30 0.25 MG Lactated Ringer's 1,000 ml @ 0 mls/hr Q0M ONCE IV 04/16/18 03:26 04/16/18 03:29 DC 04/16/18 03:30 0 MLS/HR Ondansetron HCl 8 mg ONCE ONCE IVP 04/16/18 03:30 04/16/18 03:31 DC 04/16/18 03:30 8 MG Sodium Chloride 1,000 ml @ 0 mls/hr Q0M ONCE IV 04/16/18 04:48 04/16/18 04:51 DC 04/16/18 04:57 0 MLS/HR Vital Signs/I&O 04/16/18 04/16/18 04/16/18 03:20 03:50 05:40 Temp 98.0 98.0 Pulse 128 140 Resp 20 18 B/P (MAP) 128/100 (109) 131/107 Pulse Ox 92 97 94 O2 Delivery Room Air Room Air Room Air O2 Flow Rate 2.00 Blood Pressure Mean: 109 Progress Progress Note : Progress Note 0530--PT C/O RLQ AND LLQ PAIN AND CRAMPING WELL MID BACK CRAMPING--RLQ > LLQ . PT UP SITTING ON SIDE OF BED, VERY RESTLESS, MOANING LOUDLY AGAIN. PT GIVEN TORADOL, FENTANYL, ZOFRAN, LEVSIN WITH MODERATE RELIEF OF PAIN, PT ABLE TO LAY ON ER CART AND NO LONGER MOANING PT TOO LARGE FOR CT SCAN OR REGULAR XRAY TABLE Initial ECG Impression Date: Apr 16, 2018 Initial ECG Impression Time: 05:35 Initial ECG Rate: 123 Initial ECG Rhythm: A Fib/Flutter ([facility] RVR) Initial ECG Impression: Nonspecific Changes Departure Communication (Admissions) 0425--CALLED [facility] DIRECT CALL. 0430--SPOKE WITH DR. RODRIGUEZ, ER PHYSICIAN, ACCEPTS PT FOR TRANSFER TO ER. Impression Primary Impression: Abdominal pain Additional Impressions: Elevated liver enzymes Acute renal failure Chronic atrial fibrillation with rapid ventricular response Morbid obesity Severe sepsis Nausea and vomiting Disposition: 02 XFER SHT-TRM HOSP Condition: Stable/Unchanged Departure-Patient Inst. Referrals: ALVARO MEAD DO (PCP/Family) Primary Care Physician LONNY ZAMUDIO DO Apr 16, 2018 05:27
[2018-04-16] MEDS ORDERED: fentaNYL INJECTION 100 MCG/2 ML AMP IVP STA (05:31)
[2018-04-16 05:40] VITALS: BP 131/107
== END 2018-04-16 05:40 | disposition short-term general hospital (02) ==
LOC: EDUNIT# 03:17 → ER 03:19
DX: A41.9 Sepsis, unspecified organism (principal); R65.20 Severe sepsis without septic shock; N17.9 Acute kidney failure, unspecified; R94.5 Abnormal results of liver function studies; E66.01 Morbid (severe) obesity due to excess calories; I48.2 Chronic atrial fibrillation; I10 Essential (primary) hypertension; Z79.01 Long term (current) use of anticoagulants; Z98.890 Other specified postprocedural states
CPT/HCPCS: 36415; 80053; 82150; 83605; 83690; 84484; 85007; 85027; 85610; 85730; 87040; 93005; 93041; 96361; 96374; 96375; 96376

== ENCOUNTER 2018-06-27 05:31 | Outpatient (CLI) | payer MEDICARE ==
[~2018-06-27] VITALS: Ht 177.8 cm; Wt 181.4 kg
[2018-06-27] MEDS ORDERED: ALLO100T PO (11:20)
[2018-06-27] MEDS ORDERED: LYCO10CA2 PO (11:20)
[2018-06-27] MEDS ORDERED: EDOX60TA PO (11:20)
[2018-06-27] MEDS ORDERED: CYCL10TA9 PO (11:20)
[2018-06-27] MEDS ORDERED: MULT-517 PO (11:20)
[2018-06-27] MEDS ORDERED: HYDR25TA4 PO (11:20)
[2018-06-27] MEDS ORDERED: GLUC-173 PO (11:20)
[2018-06-27] MEDS ORDERED: CHOL5000 PO (11:20)
[2018-06-27] MEDS ORDERED: TRAM50TA2 PO (11:20)
[2018-06-27] MEDS ORDERED: VERA80TA2 PO (11:20)
[2018-06-27] MEDS ORDERED: CYAN250010 PO (11:21)
[2018-06-27] MEDS ORDERED: MAGN500C15 PO (11:21)
== END 2018-06-27 11:26 | disposition home or self-care (01) ==
LOC: PREOP 05:31
PROVIDERS: ATTEND Internal Medicine
DX: Z01.818 Encounter for other preprocedural examination (principal)

== ENCOUNTER 2018-07-04 07:28 | Day surgery (SDC) | payer MEDICARE ==
--- NOTE | 2018-06-27 17:56 | HISTORY AND PHYSICAL ---
DATE OF SERVICE: COLONOSCOPY HISTORY AND PHYSICAL HISTORY OF PRESENT ILLNESS: The patient is a 57-year-old white male referred for his first screening EGD by Dr. March. He is deemed to be of average risk as he is not aware of any family history for colon polyps or colon cancer. He denies melena or bright red blood per rectum. He denies bowel habit change or any recent changes in weight. He also denies any problems with abdominal pain. PAST MEDICAL HISTORY: Significant for longstanding hypertension, obesity and persistent atrial fibrillation. His last echocardiogram was in 2017. It was unremarkable except for atrial fibrillation at that time and ejection fraction 60%, normal cardiac chamber dimensions, no evidence for LVH or pulmonary hypertension reported. He had an unsuccessful attempt at cardioversion and has been rate controlled without any increase in dyspnea on exertion or baseline orthopnea, PND, pedal edema or symptoms to suggest heart failure. He has a longstanding history of morbid obesity. MEDICATIONS ON ADMISSION: Include verapamil 80 mg b.i.d., hydrochlorothiazide 25 mg daily, Savaysa 60 mg daily, cyclobenzaprine 10 mg b.i.d., tramadol 50 mg q.6 p.r.n., allopurinol 100 mg q.a.m. daily, Ventolin 2 puffs in the morning and the evening and q.4 p.r.n. He takes Centrum Silver, vitamin D3 5000 units daily, Lycopene 10 mg daily, and glucosamine and chondroitin sulfate supplement each morning. FAMILY HISTORY: Mother at the age of 66 of complications of COPD with known tobaccoism. Father in his 50s of an DC, which may have been aggravated by addiction to prescription narcotic medication. PAST SURGICAL HISTORY: He had a tonsillectomy and adenoidectomy in 1966. He has had several arthroscopic right knee procedures, last in 1989. He had ventral hernia repair in 1999 and then again earlier this year. PHYSICAL EXAMINATION: GENERAL: Reveals a pleasant overweight white male in no acute distress. VITAL SIGNS: Weight was 423 pounds, blood pressure 147/90. HEENT: Reveals Mallampati class 3 oropharyngeal configuration. There is no evidence for erythema or exudate. Sclerae are nonicteric. CHEST: Clear to auscultation. CARDIOVASCULAR: Reveals a regular rate and rhythm without murmur, S3 or S4. ABDOMEN: Obesity precludes a sensitivity of abdominal evaluation, unable to really ascertain for organomegaly, but no tenderness is noted. Bowel sounds are positive. EXTREMITIES: Reveal no cyanosis or clubbing with trace edema. No ulcerations noted. ASSESSMENT AND PLAN: The patient was set up for screening colonoscopy on 07/04. He is to hold Savaysa 48 hours prior to his procedure and continue to abstain from aspirin or other nonsteroidal medications. He will continue his other medications unchanged. Prep instructions with split dose Colyte were given. The patient's electronic medical record was reviewed and the patient's questions were answered. Forty minutes of care time was spent by myself with another 15 minutes of staff time going over prep instructions and setting up the procedure. I thank you for the referral of this pleasant gentleman. Job ID: [id number] DocumentID: [id number] Dictated Date: 06/26/2018 18:37:19 Offensive Coordinator Date: 06/26/2018 19:10:54 Dictated By: SARITA KOO MD MTDD
[~2018-07-04] VITALS: Ht 177.8 cm; Wt 191.9 kg
[~2018-07-04 07:28] MED LIST changes: +ALLO100T PO; +CHOL5000 PO; +CYAN250010 PO; +CYCL10TA9 PO; +EDOX60TA PO; +GLUC-173 PO; +HYDR25TA4 PO; +LYCO10CA2 PO; +MAGN500C15 PO; +MULT-517 PO; +TRAM50TA2 PO; +VERA80TA2 PO
--- OUTSIDE RECORDS SUMMARY | 2018-07-04 07:32 | XMS REPORT | Clinical Summary ---
Author Author [facility] Organization [facility] Address Unknown Phone Unavailable Care Team Providers Care Automotive Assembler Name Role Phone Chuck Melgar DO PCP Source Comments Some departments are not documenting in the electronic medical record. If you do not see the information that you expected, contact Release of Information in the Health Information Management department at [phone] for further assistance in locating additional records.[facility] Allergies No Known Allergies Current Medications Prescription [...] 1 Tab by mouth twice 60 Tab 11 Active mg tablet daily. Do not start 14 Flecainide until you have completed 21 days of twice daily Pradaxa. Active Problems Problem Noted Date HTN (hypertension) 04/16/2014 Atrial fibrillation (HCC) 04/16/2014 Overview: [id number], Moderate concentric LV Hypertrophy, [...] 2008 VACCINE (1 of 2) INFLUENZA VACCINE 04/09/2018 Results Not on filefrom Last 3 Months
--- OUTSIDE RECORDS SUMMARY | 2018-07-04 07:33 | XMS REPORT | Continuity of Care Document ---
Author Author [facility] Organization [facility] Address Unknown Phone Unavailable Allergies Active Description Code Type Severity Reaction Onset Reported/Identified Relationship to Patient Clinical Status Yes No Known Drug Allergies [id number] Drug Allergy Unknown N/A 06/27/2018 Medications There is no data. Problems Date [...] V85.44 BODY MASS INDEX 60.0-69.9, ADULT 08/31/2016 EATDELLA VILLATORO DO Ot 274.9 GOUT NOS 08/31/2016 DELLA BURNETT DO Ot 719.47 JOINT PAIN-ANKLE 08/31/2016 DELLA BURNETT DO Ot 278.00 OBESITY, NOS 08/31/2016 LEX KHALIL DELLA C Ot 288.60 LEUKOCYTOSIS, UNSPECIFIED 08/31/2016 HAKEEMON DO DELLA C Ot 401.9 HYPERTENSION NOS 08/31/2016 [...] CARDIAC DYSRHYTHMIA NOS 09/27/2016 EATON DO, DELLA Llanos Ot V70.0 ROUTINE MEDICAL EXAM 10/06/2016 KAMRON JESSICA WHEEL SETTER Ot G47.10 HYPERSOMNIA, UNSPECIFIED 10/06/2016 KAMRON JESSICA WHEEL SETTER Ot I10 ESSENTIAL (PRIMARY) HYPERTENSION 10/08/2016 KAMRON JESSICA WHEEL SETTER Ot G47.10 HYPERSOMNIA, UNSPECIFIED 10/08/2016 KAMRON JESSICA WHEEL SETTER Ot I10 ESSENTIAL (PRIMARY) HYPERTENSION 01/14/2017 MARIA INES JEFFRIES WHEEL SETTER Ot M53.3 SACROCOCCYGEAL DISORDERS, NOT ELSEWHERE 02/08/2017 MARI AINES JEFFRIES WHEEL SETTER Ot M53.3 SACROCOCCYGEAL DISORDERS, NOT ELSEWHERE 04/16/2017 [...] ROUTINE MEDICAL EXAM 04/16/2017 MARIA INES JEFFRIES WHEEL SETTER Ot M53.3 SACROCOCCYGEAL DISORDERS, NOT ELSEWHERE 04/22/2017 [...] ROUTINE MEDICAL EXAM 04/22/2017 MARIA INES JEFFRIES WHEEL SETTER Ot M53.3 SACROCOCCYGEAL DISORDERS, NOT ELSEWHERE 04/22/2017 ORENDER DO, ALVARO S Ot N18.9 CHRONIC KIDNEY DISEASE, UNSPECIFIED 04/24/2017 MARIA INES JEFFRIES WHEEL SETTER Ot M53.3 SACROCOCCYGEAL DISORDERS, NOT ELSEWHERE 04/24/2017 ORENDER DO, ALVARO S Ot N28.9 DISORDER OF KIDNEY AND URETER, UNSPECIFI 04/24/2017 ORENDER DO, ALVARO S Ot Q60.0 RENAL AGENESIS, UNILATERAL 04/24/2017 ROSA LAZARO Ot I48.91 UNSPECIFIED ATRIAL FIBRILLATION 04/25/2017 MARIA INES JEFFRIES WHEEL SETTER Ot M53.3 SACROCOCCYGEAL DISORDERS, NOT ELSEWHERE 04/25/2017 [...] 401.9 HYPERTENSION NOS 05/10/2017 DELLA BURNETT DO Viet Ot 427.9 CARDIAC DYSRHYTHMIA NOS 05/10/2017 DELLA BURNETT DO Ot V70.0 ROUTINE MEDICAL EXAM 05/10/2017 MARIA INES JEFFRIES Bailee CRANE Ot M53.3 SACROCOCCYGEAL DISORDERS, NOT ELSEWHERE 05/10/2017 TANESHAER DO ALVARO S Ot N28.9 DISORDER OF KIDNEY AND URETER, UNSPECIFI 05/10/2017 ORENDER DO, ALVARO S Ot Q60.0 RENAL AGENESIS, UNILATERAL 05/10/2017 ROSA LAZARO Ot I48.91 UNSPECIFIED ATRIAL FIBRILLATION 05/15/2017 ORENDER DO, ALVARO S Ot N28.9 DISORDER OF KIDNEY AND URETER, UNSPECIFI 05/15/2017 ADRIANNDER DO, ALVARO S Ot Q60.0 RENAL AGENESIS, UNILATERAL 05/17/2017 RALPH BERGERON MD Ot G47.33 OBSTRUCTIVE SLEEP APNEA (ADULT) (PEDIATR 05/17/2017 RALPH BERGERON MD Ot I10 ESSENTIAL (PRIMARY) HYPERTENSION 05/17/2017 RALPH BERGERON MD Ot I48.91 UNSPECIFIED ATRIAL FIBRILLATION 05/17/2017 RALPH BERGERON MD Ot R00.2 PALPITATIONS 06/06/2017 TANESHAER STARR KHALILALVARO S Ot N28.9 DISORDER OF KIDNEY AND URETER, UNSPECIFI 06/06/2017 TANESHAER , ALVARO S Ot Q60.0 RENAL AGENESIS, UNILATERAL 06/06/2017 RALPH BERGERON MD Ot G47.33 OBSTRUCTIVE SLEEP APNEA (ADULT) (PEDIATR 06/06/2017 RALPH BERGERON MD Ot I10 ESSENTIAL (PRIMARY) HYPERTENSION 06/06/2017 RALPH BERGERON MD Ot I48.91 UNSPECIFIED ATRIAL FIBRILLATION 06/06/2017 RALPH BERGERON MD Ot R00.2 PALPITATIONS 06/07/2017 ROSA LAZARO Ot I48.91 UNSPECIFIED ATRIAL FIBRILLATION 07/01/2017 ROSA LAZARO Ot I48.91 UNSPECIFIED ATRIAL FIBRILLATION 04/16/2018 Ot A41.9 SEPSIS, UNSPECIFIED ORGANISM 04/16/2018 Ot E66.01 MORBID ( SEVERE) OBESITY DUE TO EXCESS CA 04/16/2018 Ot I10 ESSENTIAL ( PRIMARY) HYPERTENSION 04/16/2018 Ot I48.2 CHRONIC ATRIAL FIBRILLATION 04/16/2018 Ot N17.9 ACUTE KIDNEY FAILURE, UNSPECIFIED 04/16/2018 Ot R11.10 VOMITING, UNSPECIFIED 04/16/2018 Ot R65.20 SEVERE SEPSIS WITHOUT SEPTIC SHOCK 04/16/2018 Ot R94.5 ABNORMAL RESULTS OF LIVER FUNCTION STUDI 04/16/2018 Ot Z79.01 YARD ASSOCIATE ( CURRENT) USE OF ANTICOAGULANT 04/16/2018 Ot Z98.890 OTHER SPECIFIED POSTPROCEDURAL STATES 06/27/2018 SARITA KOO MD Ot Z01.818 ENCOUNTER FOR OTHER PREPROCEDURAL EXAMIN 07/03/2018 SARITA KOO MD Ot Z01.818 ENCOUNTER FOR OTHER PREPROCEDURAL EXAMIN Procedures There is no data. Results Test Result Range Complete blood count (CBC) with automated white blood cell (WBC) differential - 04/16/18 03:45 Blood leukocytes automated count (number/volume) 24.0 10*3/uL 4.3-11.0 Blood erythrocytes automated count (number/volume) 5.55 10*6/uL 4.35-5.85 Venous blood hemoglobin measurement (mass/volume) 16.5 g/dL 13.3-17.7 Blood hematocrit (volume fraction) 47 % 40-54 Automated erythrocyte mean corpuscular volume 84 [foz_us] 80-99 Automated erythrocyte mean corpuscular hemoglobin (mass per erythrocyte) 30 pg 25-34 Automated erythrocyte mean corpuscular hemoglobin concentration measurement ( mass/volume) 35 g/dL 32-36 Automated erythrocyte distribution width ratio 14.2 % 10.0-14.5 Automated blood platelet count (count/volume) 327 10*3/uL 130-400 Automated blood platelet mean volume measurement 11.8 [foz_us] 7.4-10.4 Automated blood neutrophils/100 leukocytes 89 % 42-75 Automated blood lymphocytes/100 leukocytes 4 % 12-44 Blood monocytes/100 leukocytes 6 % 0-12 Automated blood eosinophils/100 leukocytes 0 % 0-10 Automated blood basophils/100 leukocytes 0 % 0-10 Blood neutrophils automated count (number/volume) 21.4 10*3 1.8-7.8 Blood lymphocytes automated count (number/volume) 1.0 10*3 1.0-4.0 Blood monocytes automated count (number/volume) 1.5 10*3 0.0-1.0 Automated eosinophil count 0.0 10*3/uL 0.0-0.3 Automated blood basophil count (count/volume) 0.0 10*3/uL 0.0-0.1 PT panel in platelet poor plasma by coagulation assay - 04/16/18 03:45 Prothrombin time (PT) in platelet poor plasma by coagulation assay 17.3 s 12.2-14.7 INR in platelet poor plasma or blood by coagulation assay 1.4 0.8-1.4 Activated partial thromboplastin time (aPTT) in platelet poor plasma bycoagulation assay - 04/16/18 03:45 Activated partial thromboplastin time (aPTT) in platelet poor plasma bycoagulation assay 35 s 24-35 Comprehensive metabolic panel - 04/16/18 03:45 Serum or plasma sodium measurement (moles/volume) 137 mmol/L 135-145 Serum or plasma potassium measurement (moles/volume) 3.6 mmol/L 3.6-5.0 Serum or plasma chloride measurement (moles/volume) 95 mmol/L 98-107 Carbon dioxide 22 mmol/L 21-32 Serum or plasma anion gap determination (moles/volume) 20 mmol/L 5-14 Serum or plasma urea nitrogen measurement (mass/volume) 33 mg/dL 7-18 Serum or plasma creatinine measurement (mass/volume) 2.14 mg/dL 0.60-1.30 Serum or plasma urea nitrogen/creatinine mass ratio 15 NRG Serum or plasma creatinine measurement with calculation of estimated glomerular filtration rate 32 NRG Serum or plasma glucose measurement (mass/volume) 210 mg/dL 70-105 Serum or plasma calcium measurement (mass/volume) 11.1 mg/dL 8.5-10.1 Serum or plasma total bilirubin measurement (mass/volume) 4.3 mg/dL 0.1-1.0 Serum or plasma alkaline phosphatase measurement (enzymatic activity/volume) 362 U/L 40-136 Serum or plasma aspartate aminotransferase measurement (enzymatic activity/ volume) 191 U/L 5-34 Serum or plasma alanine aminotransferase measurement (enzymatic activity/volume ) 225 U/L 0-55 Serum or plasma protein measurement (mass/volume) 8.7 g/dL 6.4-8.2 Serum or plasma albumin measurement (mass/volume) 4.2 g/dL 3.2-4.5 CALCIUM CORRECTED 10.9 mg/dL 8.5-10.1 Serum or plasma troponin i.cardiac measurement (mass/volume) - 04/16/18 03:45 Serum or plasma troponin i.cardiac measurement (mass/volume) < ng/ mL <0.30 Serum or plasma amylase measurement (enzymatic activity/volume) - 04/16/18 03: 45 Serum or plasma amylase measurement (enzymatic activity/volume) 41 U /L 25-125 Blood lactic acid measurement (moles/volume) - 04/16/18 03:45 Blood lactic acid measurement (moles/volume) 2.92 mmol/L 0.50-2.00 Blood manual differential performed detection - 04/16/18 03:45 Blood monocytes/100 leukocytes 5 % NRG Manual blood segmented neutrophils/100 leukocytes 88 % NRG Blood band neutrophils/100 leukocytes 3 % NRG Manual blood lymphocytes/100 leukocytes 4 % NRG Manual eosinophils/100 leukocytes in nose 0 % NRG Manual blood basophils/100 leukocytes 0 % NRG Blood erythrocyte morphology finding identification NORMAL NRG Lipase - 04/16/18 03:45 Lipase 95 U/L 8-78 Bacterial blood culture - 04/16/18 03:45 Bacterial blood culture NG NRG Bacterial blood culture - 04/16/18 05:15 Bacterial blood culture NG NRG Serum or plasma lactate measurement (moles/volume) - 04/16/18 05:45 Serum or plasma lactate measurement (moles/volume) 3.47 mmol/L 0.50-2.00 Complete urinalysis with reflex to culture - 04/16/18 07:51 Urine color determination YELLOW NRG Urine clarity determination CLEAR NRG Urine pH measurement by test strip 5 5-9 Specific gravity of urine by test strip 1.025 1.016- 1.022 Urine protein assay by test strip, semi-quantitative 2+ NEGATIVE Urine glucose detection by automated test strip NEGATIVE NEGATIVE Erythrocytes detection in urine sediment by light microscopy NEGATIVE NEGATIVE Urine ketones detection by automated test strip NEGATIVE NEGATIVE Urine nitrite detection by test strip NEGATIVE NEGATIVE Urine total bilirubin detection by test strip NEGATIVE NEGATIVE Urine urobilinogen measurement by automated test strip (mass/volume) NORMAL NORMAL Urine leukocyte esterase detection by dipstick 1+ NEGATIVE Automated urine sediment erythrocyte count by microscopy (number/high power field) NONE NRG Automated urine sediment leukocyte count by microscopy (number/high power field ) [HPF] NRG Bacteria detection in urine sediment by light microscopy TRACE NRG Squamous epithelial cells detection in urine sediment by light microscopy 5-10 NRG Crystals detection in urine sediment by light microscopy PRESENT NRG Casts detection in urine sediment by light microscopy NONE NRG Mucus detection in urine sediment by light microscopy SMALL NRG Complete urinalysis with reflex to culture YES NRG Calcium oxalate crystals detection in urine sediment by light microscopy FEW NRG Encounters ACCT No. Visit Date/Time Discharge Status Pt. 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 HX ATRIAL FIB [id number] 02/20/2017 10:16:00 02/20/2017 23:59:59 CLS Preadmit ALVARO SAMANIEGO DO [facility] RAD RENAL INSUFFICIENCY [id number] 12/10/2016 13:41:00 12/10/2016 23:59:59 CLS Outpatient MARIA INES JEFFRIES APRN [facility] RAD SACRUM/COCCYX PAIN [id number] 10/05/2016 20:20:00 10/06/2016 06:45:00 DIS Outpatient KAMRON JESSICA APRN [facility] SLEEP OBSERVED APNEAS, SNORING, HYPERTENSION [id number] 06/28/2014 07:36:00 06/28/2014 14:25:00 DIS Outpatient RALPH BERGERON MD [facility] CATH AFIB, [id number] 02/15/2014 15:38:00 02/15/2014 23:59:59 CLS Outpatient DELLA BURNETT DO [facility] CARD ARRHYTHMIA,HTN,OBESITY [id number] 02/05/2013 14:43:00 02/05/2013 23:59:59 CLS Outpatient DELLA BURNETT DO [facility] RAD GOUT, RT FOOT ANKLE PAIN FOR SEVERAL WEEKS [id number] 04/16/2018 04:03:00 Document Registration [id number] 05/28/2017 08:33:00 05/28/2017 23:59:00 DIS Outpatient CHAZ ROBERTSON 08/201706/19/2018 14:49:28 06/19/2018 23:59:59 CLS Outpatient Alvaro Samaniego
[2018-07-04 07:37] VITALS: BP 127/99
[2018-07-04] MEDS ORDERED: D5 LR IV SOLUTION 1,000 ML IV ONE (07:42)
[2018-07-04] MEDS ORDERED: D5 LR IV SOLUTION 1,000 ML IV STA (08:06)
--- NOTE | 2018-07-04 08:08 | Pre-Op Note & Conscious Sedat ---
Pre-Operative Progress Note H&P Reviewed The H&P was reviewed, patient examined and no changes noted. Date H&P Reviewed: Jul 04, 2018 Time H&P Reviewed: 08:08 Conscious Sedation Pre-Proced ASA Score 3 For ASA 3 and 4: Consider anesthesia and medical clearance. Also, for patients with a history of failed moderate sedation consider anesthesia. Airway Lungs Heart ASA score ASA 1: a normal healthy patient ASA 2: a patient with a mild systemic disease (mid diabetes, controlled hypertension, obesity ASA 3: a patient with a severe systemic disease that limits activity (angina , COPD, prior Myocardial infarction) ASA 4: a patient with an incapacitating disease that is a constant threat to life (CHF, renal failure) ASA 5: a moribund patient not expected to survive 24 hrs. (ruptured aneurysm) ASA 6: a declared brain patient whose organs are being harvested. For emergent operations, add the letter E after the classification Mallampati Classification Grade 3 Sedation Plan Analgesia, Amnesia, Plan communicated to team members, Discussed options with patient/fam, Discussed risks with patient/fam The patient is an appropriate candidate to undergo the planned procedure, sedation, and anesthesia. The patient immediately re-assessed prior to indication. SARITA KOO MD Jul 04, 2018 08:08
[2018-07-04] MEDS ORDERED: MIDAZOLAM 2 MG/2 ML (VERSED) VIAL IVP ONE (08:15)
[2018-07-04] MEDS ORDERED: LIDOCAINE JELLY 2% 6 ML SYRINGE MM PRN (08:15)
[2018-07-04] MEDS ORDERED: fentaNYL INJECTION 100 MCG/2 ML AMP IVP ONE (08:15)
[2018-07-04] MEDS ORDERED: LIDOCAINE JELLY 2% 6 ML SYRINGE ONE (08:56)
[2018-07-04] MEDS ORDERED: fentaNYL INJECTION 100 MCG/2 ML AMP ONE (08:57)
[2018-07-04] MEDS ORDERED: MIDAZOLAM 2 MG/2 ML (VERSED) VIAL ONE ×2 (08:57)
[2018-07-04 09:40] VITALS: BP 157/75
[2018-07-04 10:10] VITALS: BP 138/94
[2018-07-04 10:32] VITALS: BP 138/94
--- NOTE | 2018-07-04 12:19 | OPERATIVE REPORT ---
DATE OF SERVICE: COLONOSCOPY SUMMARY INDICATION FOR THE PROCEDURE: Screening colonoscopy. DESCRIPTION OF PROCEDURE: The patient was placed in the left lateral decubitus position. Prior to undergoing colonoscopy, digital rectal evaluation was performed. Anal sphincter tone was normal and the perianal reflexes intact. No abnormalities were noted on visual inspection of anal canal or distal rectal vault. The prostate is normal in size, anodular and nontender to digital inspection. The colonoscope was then inserted into the rectum and under direct visualization advanced to the cecum. The cecum was identified by identification of the ileocecal valve and cecal strap. Photographic documentation was obtained. Careful inspection was made as the colonoscope was withdrawn. FINDINGS: There is no evidence for internal or external hemorrhoids and the rectum was unremarkable. One diminutive 3 mm hyperplastic appearing polyp was noted at the rectosigmoid junction. It was biopsied, ablated and submitted for histopathology with no subsequent blood loss. The remainder of the sigmoid colon, descending colon, splenic flexure, transverse colon, hepatic flexure, ascending colon and cecum were unremarkable with no other evidence for neoplasia. No diverticulum was identified. ASSESSMENT AND PLAN: One diminutive hyperplastic polyp was removed from the rectosigmoid junction. This is an otherwise normal colonoscopy to the cecum as well as normal digital evaluation of the prostate. We would advocate consideration for repeat screening colonoscopy in 10 years as the patient is not aware of any family history for colon cancer. I thank you for the referral of this pleasant gentleman. Job ID: [id number] DocumentID: [id number] Dictated Date: 07/04/2018 09:43:13 Bonderizer Date: 07/04/2018 12:18:31 Dictated By: SARITA KOO MD MTDD
== END 2018-07-04 10:30 | disposition home or self-care (01) ==
LOC: ENDO 07:28
PROVIDERS: ATTEND Internal Medicine
DX: Z12.11 Encounter for screening for malignant neoplasm of colon (principal); K63.5 Polyp of colon; I10 Essential (primary) hypertension; I48.1 Persistent atrial fibrillation; E66.01 Morbid (severe) obesity due to excess calories; Z68.44 Body mass index [BMI] 60.0-69.9, adult; Z79.899 Other long term (current) drug therapy

== ENCOUNTER 2018-12-17 14:11 | Inpatient (IN) | payer MEDICARE, OTHER ==
[~2018-12-17] VITALS: Ht 177.8 cm; Wt 201.9 kg
--- NOTE | 2018-12-17 14:26 | NUR ---
TO ROOM NO CHANGE FROM TRIAGE.
[2018-12-17] MEDS ORDERED: fentaNYL INJECTION 100 MCG/2 ML AMP IVP STA ×2 (14:56→16:53)
[2018-12-17] MEDS ORDERED: NS IV 1000 ML 1,000 ML IV STA (14:56)
[2018-12-17] MEDS ORDERED: ONDANSETRON 4 MG/2 ML (SDV) Z0FRAN IVP ONE (15:00)
--- NOTE | 2018-12-17 15:19 | ED Abdominal Pain ---
General Chief Complaint: Abdominal/GI Problems Stated Complaint: PANCREATITIS Nursing Triage Note: PT REPORTS ABD PAIN SINCE SATURDAY NIGHT. PT WENT TO HIS PCP TODAY WHERE BLOOD WORK WAS OBTAINED. [facility] CALLED AND TOLD PT TO GO TO THE ER IMMEDIATELY. Sepsis Screen: No Definite Risk Source of Information: Patient Exam Limitations: No Limitations History of Present Illness Date Seen by Provider: Dec 17, 2018 Time Seen by Provider: 14:49 Initial Comments Here with report of central abdominal pain. He is seen by his primary care provider today and had labs drawn. That did show elevated amylase and lipase as well as total bilirubin and liver enzymes. White count was 14.4. Patient reports that he is not mildly eat or drink well because of nausea and vomiting over the last few days. Does have history of pancreatitis 20+ years ago. Patient was sent here for further evaluation. Patient is morbidly obese and weighs approximately 460 pounds. Timing/Duration: 2-3 Days Severity/Quality: Moderate, Severe, Aching Location: RUQ, LUQ, Epigastric Radiation: RUQ, LUQ Activities at Onset: None Associated Symptoms: No Back Pain, No Fever/Chills; Nausea/Vomiting; No Shortness of Air, No Weakness Allergies and Home Medications Allergies Coded Allergies: No Known Drug Allergies (Unverified , 12/17/18) Home Medications Allopurinol 100 Mg Tablet, 100 MG PO DAILY, (Reported) Cholecalciferol (Vitamin D3) 5,000 Unit Capsule, 5,000 UNIT PO DAILY, (Reported) Cyanocobalamin (Vitamin B-12) 2,500 Mcg Tablet, 2,500 MCG PO DAILY, (Reported) Cyclobenzaprine HCl 10 Mg Tablet, 10 MG PO BID PRN for SPASMS, (Reported) Glucosamine/MSM/Chondroitin A 1 Each Tablet, 1 EACH PO DAILY, (Reported) Hydrochlorothiazide 25 Mg Tablet, 25 MG PO DAILY, (Reported) Lycopene 10 Mg Capsule, 10 MG PO DAILY, (Reported) Magnesium Oxide 500 Mg Capsule, 500 MG PO DAILY, (Reported) Multivitamin 1 Each Tablet, 1 EACH PO DAILY, (Reported) Tramadol HCl 50 Mg Tablet, 50 MG PO PRN, (Reported) Verapamil HCl 80 Mg Tablet, 80 MG PO BID, (Reported) Patient Home Medication List Home Medication List Reviewed: Yes Review of Systems Review of Systems Constitutional: see HPI; No chills, No fever EENTM: No Symptoms Reported Respiratory: No Symptoms Reported Cardiovascular: No Symptoms Reported Gastrointestinal: See HPI, Abdominal Pain, Nausea, Vomiting Genitourinary: No Symptoms Reported Musculoskeletal: no symptoms reported All Other Systems Reviewed Negative Unless Noted: Yes Past Jhcotbk-Lnxbho-Rjryqq Hx Past Med/Social Hx: Reviewed Nursing Past Med/Soc Hx Patient Social History Alcohol Use: Denies Use Recreational Drug Use: No Smoking Status: Never a Smoker Recent Foreign Travel: No Contact w/Someone Who Travel: No Recent Infectious Disease Expo: No Recent Hopitalizations: Yes (HERNIA-REPAIR PATEL 04/2018) Seasonal Allergies Seasonal Allergies: No Past Medical History Surgeries: Yes (VENTRAL HERNIA REPAIR WITH MESH; OPEN LEFT KNEE SURGERY) Abdominal, Orthopedic Respiratory: Yes Sleep Apnea Currently Using CPAP: Yes Cardiac: Yes Atrial Fibrillation, Hypertension Neurological: No Reproductive Disorders: No Sexually Transmitted Disease: No HIV/AIDS: No Genitourinary: No Gastrointestinal: Yes Abdominal Hernia Musculoskeletal: No Endocrine: Yes (MORBID OBESITY) Loss of Vision: Bilateral Hearing Impairment: Denies Cancer: No Psychosocial: No Integumentary: No Blood Disorders: No Adverse Reaction/Blood Tranf: No (N/A) Family Medical History Reviewed Nursing Family Hx Physical Exam Vital Signs Vital Signs - First Documented 12/17/18 14:17 Temp 97.6 Pulse 92 Resp 16 B/P (MAP) 193/109 (137) Pulse Ox 94 Capillary Refill : Less Than 3 Seconds Height/Weight/BMI Height: 5'10.00" Weight: 440lbs. 0.0oz. 199.699217xp; 60.7 BMI Method:Stated General Appearance: WD/WN, mild distress, obese HEENT: PERRL/EOMI, pharynx normal Neck: full range of motion, supple Respiratory: lungs clear, normal breath sounds Cardiovascular: regular rate, rhythm, no murmur Gastrointestinal: other (challenging exam due to large pannus. When patient is on his back, pain seems to be near the epigastric and low rib area slightly more to the left but then also to the right. Pain is definitely worse on the left upper quadrant than right upper quadrant. Unable to determine bowel sounds due to morbid obesity) Extremities: non-tender, normal inspection Back: normal inspection, no CVA tenderness, no vertebral tenderness Neurologic/Psychiatric: alert, oriented x 3 Skin: normal color, warm/dry Focused Exam Lactate Level 12/17/18 15:40: Lactic Acid Level 1.18 Lactic Acid Level Laboratory Tests Test 12/17/18 15:40 Lactic Acid Level 1.18 MMOL/L (0.50-2.00) Progress/Results/Core Measures Results/Orders Lab Results Laboratory Tests Test 12/17/18 15:05 12/17/18 15:40 Range/Units C-Reactive Protein High Sensitivity 10.71 H 0.00-0.50 MG/DL Lactic Acid Level 1.18 0.50-2.00 MMOL/L My Orders Orders - GRETTA MCDANIEL MD Ondansetron Injection (Zofran Injectio (12/17/18 15:00) Ns Iv 1000 Ml (Sodium Chloride 0.9%) (12/17/18 14:56) Ed Iv/Invasive Line Start (12/17/18 14:56) Fentanyl Injection (Sublimaze Injection (12/17/18 14:56) Hs C Reactive Protein (12/17/18 14:59) Lactic Acid Analyzer (12/17/18 14:59) Blood Culture (12/17/18 14:59) Levofloxacin 750 Mg/150 Ml Iv (Levaquin (12/17/18 15:56) Medications Given in ED Current Medications Medications Dose Ordered Sig/Magaly Route Start Time Stop Time Status Last Admin Dose Admin Ondansetron HCl 4 mg ONCE ONCE IVP 12/17/18 15:00 12/17/18 15:01 DC 12/17/18 15:10 4 MG Vital Signs/I&O 12/17/18 14:17 Temp 97.6 Pulse 92 Resp 16 B/P (MAP) 193/109 (137) Pulse Ox 94 Blood Pressure Mean: 137 Progress Progress Note : Progress Note Seen and evaluated. Labs reviewed from outside so the which does show WBC 14.4, hemoglobin 16.4, platelets 233 with chemistry panel showing AST at 175, ALT of 196, total bili of 3.3, amylase 231 and lipase 743. We will initiate IV and additionally get labs for blood cultures and lactic acid due to several days of symptoms and elevated white count. Gallbladder ultrasound ordered as patient exceeds the weight limit for CT scan. IV, normal saline 1 L bolus, Zofran 4 mg IV and fentanyl 75 g IV ordered. Monitor patient. 1550: Ultrasound results noted. I discussed the case with Dr. Devi. Patient will need admission for pain control, nausea control and IV fluids. He has okay with clear liquid diet. He is recommending ciprofloxacin IV and Flagyl IV for the hospital visit. We will initiate Levaquin 750 mg IV times one now and then switch over to Cipro and Flagyl. Patient does have elevated white count but I believe this is related to pancreatitis that is functional in nature from gallstone formation and not from infectious cause. Certainly there are no findings for severe sepsis. I did discuss the case with Dr. Dickson at 1558 and she accepts patient for admission and agrees with antibiotics and pain control. Case was discussed with Dr. Gonzales per her recommendation and he will see the patient in consult. Admit, inpatient status. Patient and family agree with plan. Diagnostic Imaging Diagonstic Imaging: Ultrasound Plain Films/CT/US/NM/MRI: abdomen Comments NAME: ALEXANDRA SHABAZZ [facility] REC#: [id number] PT STATUS: REG ER : 1960 PHYSICIAN: CAMILA GREEN APRN ADMIT DATE: 12/17/18/ER Draft Date of Exam:12/17/18 US GALLBLADDER [id number] PROCEDURE: US Gallbladder. TECHNIQUE: Multiple real-time grayscale images were obtained over the right upper quadrant in various projections. INDICATION: Right upper quadrant abdominal pain. FINDINGS: Liver parenchyma is homogeneous. Hepatic veins are patent. Portal vein is patent with hepatopetal flow. Gallbladder is distended. There are several stones in the dependent portion of the gallbladder. The gallbladder wall is not thickened. Common duct is not dilated. Pancreas is obscured by bowel gas. Patient has agenesis of the right kidney. IMPRESSION: Cholecystolithiasis. Dictated on workstation # [id number] Dict: 12/17/18 1540 Trans: 12/17/18 1545 [id number] Interpreted by: GRETTA MCINTYRE MD Electronically signed by: Departure Communication (Admissions) Time/Spoke to Admitting Phy: 15:50 Time/Spoke to Consulting Phy: 15:58 Impression Primary Impression: Acute gallstone pancreatitis Disposition: ADMITTED INPATIENT Condition: Stable Admissions Decision to Admit Reason: Admit from ER (General) Decision to Admit/Date: Dec 17, 2018 Time/Decision to Admit Time: 15:50 Departure-Patient Inst. Referrals: IRAJ MARTIN MD (PCP/Family) Primary Care Physician GRETTA MCDANIEL MD Dec 17, 2018 15:19
--- NOTE | 2018-12-17 15:40 | NUR ---
TO ROOM FLUIDS INFUSING PAIN BETTER
--- NOTE | 2018-12-17 15:45 | Diagnostic Imaging Report ---
PROCEDURE: US Gallbladder. TECHNIQUE: Multiple real-time grayscale images were obtained over the right upper quadrant in various projections. INDICATION: Right upper quadrant abdominal pain. FINDINGS: Liver parenchyma is homogeneous. Hepatic veins are patent. Portal vein is patent with hepatopetal flow. Gallbladder is distended. There are several stones in the dependent portion of the gallbladder. The gallbladder wall is not thickened. Common duct is not dilated. Pancreas is obscured by bowel gas. Patient has agenesis of the right kidney. IMPRESSION: Cholecystolithiasis. Dictated by: Dictated on workstation # [id number]
[2018-12-17] MEDS ORDERED: LEVOFLOXACIN 750 MG/150 ML IV 150 ML IV STA (15:56)
--- OUTSIDE RECORDS SUMMARY | 2018-12-17 16:52 | XMS REPORT | Clinical Summary ---
Author Author [facility] Organization [facility] Address Unknown Phone Unavailable Care Team Providers Care Residential Substance Abuse Counselor Name Role Phone Chuck Melgar DO PCP Source Comments Some departments are not documenting in the electronic medical record. If you do not see the information that you expected, contact Release of Information in the Health Information Management department at [phone] for further assistance in locating additional records.[facility] Allergies No Known Allergies Medications End Date Status Medication Sig Dispensed Refills Start Date Active aspirin 325 mg tablet Take 325 mg 0 by mouth daily. Active diltiazem CD (CARDIZEM Take 1 Cap by 30 Cap CD) 240 mg capsule mouth daily. 4 Active dabigatran (PRADAXA) 150 Take 1 Cap by 60 Cap 201 mg capsule mouth twice 4 daily. Active flecainide (TAMBOCOR) 100 Take 1 Tab by 60 Tab 201 mg tablet mouth twice 4 daily. Do not start Flecainide until you have completed 21 days of twice daily Pradaxa. Active Problems Problem Noted Date HTN (hypertension) 04/16/2014 Atrial fibrillation 04/16/2014 Overview: [facility]/18[facility]2014[facility], Moderate concentric LV Hypertrophy, [...] 10 seconds. No symptoms noted. 04/29/14 Regadenoson Thallium:SUMMARY/OPINION: 1. This study is normal and represents [...] Alive Father Alive Sister Alive Social History Date Tobacco Use Types Packs/Day Years Used Never Smoker Smokeless Tobacco: Never Used Alcohol Use Drinks/Week oz/Week Comments No Sex Assigned at Date Recorded Not on file Industry Job Start Date Occupation Not on file Not on file Not on file Travel End Travel History Travel Start No recent travel history available. Last Filed Vital Signs Time Taken Vital Sign Reading 05/18/2014 11:14 AM CDT Blood Pressure 118/80 05/18/2014 11:14 AM CDT Pulse 105 - Temperature - - Respiratory Rate - - Oxygen Saturation - - Inhaled Oxygen - Concentration 05/18/2014 11:10 AM CDT Weight 199.9 kg (440 lb 11.2 oz) 05/18/2014 11:10 AM CDT Height 177.8 cm (5' 10") 05/18/2014 11:10 AM CDT Body Mass Index 63.23 Plan of Treatment Health Maintenance Due Date Last Done Comments HEPATITIS C SCREENING 1958 PHYSICAL (COMPREHENSIVE) 1965 EXAM HIV SCREENING 1973 DTAP/TDAP VACCINES (1 - 1976 Tdap) COLORECTAL CANCER 2008 SCREENING SHINGLES RECOMBINANT 2008 VACCINE (1 of 2) INFLUENZA VACCINE 04/09/2019 Results Not on filefrom Last 3 Months Advance Directives Patient has advance care planning documents on file. For more information, please contact: [facility] [address] [facility] [place] [address]
--- OUTSIDE RECORDS SUMMARY | 2018-12-17 16:53 | XMS REPORT | Continuity of Care Document ---
Author Organization Unknown Address Unknown Allergies Active Description Code Type Severity Reaction Onset Reported/Identified Relationship to Patient Clinical Status Yes No Known Drug Allergies [id number] Drug Allergy Unknown N/A 12/17/2018 Medications There is no data. Problems Date [...] [address] [employer] OBSTRUCT NEC 06/28/2014 RALPH BEGRERON MD Ot V58.61 ANTICOAGULANTS,LT,CURRENT USE 06/28/2014 RALPH BERGERON MD Ot V58.69 OTH MED,LT,CURRENT USE 06/28/2014 RALPH BERGERON MD Ot V85.44 BODY MASS INDEX 60.0-69.9, ADULT 08/31/2016 DELLA BURNETT DO Ot 274.9 GOUT NOS 08/31/2016 DELLA BURNETT DO Ot 719.47 JOINT PAIN-ANKLE 08/31/2016 DELLA BURNETT DO Ot 278.00 OBESITY, NOS 08/31/2016 DELLA BURNETT DO Ot 288.60 LEUKOCYTOSIS, UNSPECIFIED 08/31/2016 DELLA BURNETT DO Ot 401.9 HYPERTENSION NOS 08/31/2016 DELLA BURNETT DO Ot 427.9 CARDIAC DYSRHYTHMIA NOS 08/31/2016 DELLA BURNETT DO Ot V70.0 ROUTINE MEDICAL EXAM 09/27/2016 EATON DO, DELLA Llanos Ot 274.9 GOUT NOS 09/27/2016 EATON DO, DELLA Llanos Ot 719.47 JOINT PAIN-ANKLE 09/27/2016 EATON DO, DELLA Llanos Ot 278.00 OBESITY, NOS 09/27/2016 EATON DO, DELLA Llanos Ot 288.60 LEUKOCYTOSIS, UNSPECIFIED 09/27/2016 EATON DO, DELLA C Ot 401.9 HYPERTENSION NOS 09/27/2016 EATON DO, DELLA C Ot 427.9 CARDIAC DYSRHYTHMIA NOS 09/27/2016 EATON DO, DELLA Llanos Ot V70.0 ROUTINE MEDICAL EXAM 10/06/2016 KAMRON JESSICA DAIRY HUSBANDMAN Ot G47.10 HYPERSOMNIA, UNSPECIFIED 10/06/2016 KAMRON JESSICA DAIRY HUSBANDMAN Ot I10 ESSENTIAL (PRIMARY) HYPERTENSION 10/08/2016 KAMRON JESSICA DAIRY HUSBANDMAN Ot G47.10 HYPERSOMNIA, UNSPECIFIED 10/08/2016 KAMRON JESSICA DAIRY HUSBANDMAN Ot I10 ESSENTIAL (PRIMARY) HYPERTENSION 01/14/2017 MARIA INES JEFFRIES DAIRY HUSBANDMAN Ot M53.3 SACROCOCCYGEAL DISORDERS, NOT ELSEWHERE 02/08/2017 MARIA INES JEFFRIES DAIRY HUSBANDMAN Ot M53.3 SACROCOCCYGEAL DISORDERS, NOT ELSEWHERE 04/16/2017 [...] ROUTINE MEDICAL EXAM 04/16/2017 MARIA INES JEFFRIES DAIRY HUSBANDMAN Ot M53.3 SACROCOCCYGEAL DISORDERS, NOT ELSEWHERE 04/22/2017 TANESHAER AMANDA KHALIL Ot N18.9 CHRONIC KIDNEY DISEASE, UNSPECIFIED 04/22/2017 EATON DO, DELLA Llanos Ot 274.9 GOUT NOS 04/22/2017 EATON DO, DELLA Llanos Ot 719.47 JOINT PAIN-ANKLE 04/22/2017 DELLA BURNETT DO Ot 278.00 OBESITY, NOS 04/22/2017 EATIRVING DELLA KHALIL Ot 288.60 LEUKOCYTOSIS, UNSPECIFIED 04/22/2017 DELLA BURNETT DO Ot 401.9 HYPERTENSION NOS 04/22/2017 HAKEEMIRVING DELLA KHALIL Ot 427.9 CARDIAC DYSRHYTHMIA NOS 04/22/2017 HAKEEMIRVING DELLA KHLAIL Ot V70.0 ROUTINE MEDICAL EXAM 04/22/2017 MARIA INES JEFFRIES DAIRY HUSBANDMAN Ot M53.3 SACROCOCCYGEAL DISORDERS, NOT ELSEWHERE 04/22/2017 ORENDER DO, AMANDA S Ot N18.9 CHRONIC KIDNEY DISEASE, UNSPECIFIED 04/24/2017 MARIA INES JEFFRIES DAIRY HUSBANDMAN Ot M53.3 SACROCOCCYGEAL DISORDERS, NOT ELSEWHERE 04/24/2017 ORENDER DO, AMANDA S Ot N28.9 DISORDER OF KIDNEY AND URETER, UNSPECIFI 04/24/2017 ORENDER DO, AMANDA S Ot Q60.0 RENAL AGENESIS, UNILATERAL 04/24/2017 ROSA LAZARO Ot I48.91 UNSPECIFIED ATRIAL FIBRILLATION 04/25/2017 MARIA INES JEFFRIES DAIRY HUSBANDMAN Ot M53.3 SACROCOCCYGEAL DISORDERS, NOT ELSEWHERE 04/25/2017 ORENDER DO, AMANDA S Ot N28.9 DISORDER OF KIDNEY AND URETER, UNSPECIFI 04/25/2017 ORENDER DO, AMANDA S Ot Q60.0 RENAL AGENESIS, UNILATERAL 04/25/2017 ROSA LAZARO Ot I48.91 UNSPECIFIED ATRIAL FIBRILLATION 04/28/2017 ORENDER DO, AMANDA S Ot N28.9 DISORDER OF KIDNEY AND URETER, UNSPECIFI 04/28/2017 ORENDER DO, AMANDA S Ot Q60.0 RENAL AGENESIS, UNILATERAL 05/10/2017 DELLA BURNETT DO Ot 274.9 GOUT NOS 05/10/2017 DELLA BURNETT DO Ot 719.47 JOINT PAIN-ANKLE 05/10/2017 DELLA BURNETT DO Ot 278.00 OBESITY, NOS 05/10/2017 DELLA BURNETT DO Ot 288.60 LEUKOCYTOSIS, UNSPECIFIED 05/10/2017 DELLA BURNETT DO Ot 401.9 HYPERTENSION NOS 05/10/2017 DELLA BURNETT DO Ot 427.9 CARDIAC DYSRHYTHMIA NOS 05/10/2017 DELLA BURNETT DO Viet Ot V70.0 ROUTINE MEDICAL EXAM 05/10/2017 MARIA INES JEFFRIES ROSA MARIA Ot M53.3 SACROCOCCYGEAL DISORDERS, NOT ELSEWHERE 05/10/2017 BOSTON DO, AMANDA S Ot N28.9 DISORDER OF KIDNEY AND URETER, UNSPECIFI 05/10/2017 ORENDER DO, AMANDA S Ot Q60.0 RENAL AGENESIS, UNILATERAL 05/10/2017 ROSA LAZARO Ot I48.91 UNSPECIFIED ATRIAL FIBRILLATION 05/15/2017 ORENDER DO, AMANDA S Ot N28.9 DISORDER OF KIDNEY AND URETER, UNSPECIFI 05/15/2017 ORENDER DO, AMANDA S Ot Q60.0 RENAL AGENESIS, UNILATERAL 05/17/2017 RALPH BERGERON MD Ot G47.33 OBSTRUCTIVE SLEEP APNEA (ADULT) (PEDIATR 05/17/2017 RALPH BERGERON MD Ot I10 ESSENTIAL (PRIMARY) HYPERTENSION 05/17/2017 RALPH BERGERON MD Ot I48.91 UNSPECIFIED ATRIAL FIBRILLATION 05/17/2017 RALPH BERGERON MD Ot R00.2 PALPITATIONS 06/06/2017 BOSTON KHALIL, AMANDA S Ot N28.9 DISORDER OF KIDNEY AND URETER, UNSPECIFI 06/06/2017 ADRIANNDER , AMANDA S Ot Q60.0 RENAL AGENESIS, UNILATERAL 06/06/2017 [...] OF LIVER FUNCTION STUDI 04/16/2018 Ot Z79.01 AREA DEVELOPMENT CONSULTANT ( CURRENT) USE OF ANTICOAGULANT 04/16/2018 Ot Z98.890 OTHER SPECIFIED POSTPROCEDURAL STATES 06/27/2018 SARITA KOO MD Ot Z01.818 ENCOUNTER FOR OTHER PREPROCEDURAL EXAMIN 07/03/2018 SARITA KOO MD Ot Z01.818 ENCOUNTER FOR OTHER PREPROCEDURAL EXAMIN 07/04/2018 MARIA INES JEFFRIES APRN Ot M53.3 SACROCOCCYGEAL DISORDERS, NOT ELSEWHERE 07/04/2018 AMANDA SAMANIEGO DO Ot N28.9 DISORDER OF KIDNEY AND URETER, UNSPECIFI 07/04/2018 AMANDA SAMANIEGO DO S Ot Q60.0 RENAL AGENESIS, UNILATERAL 07/04/2018 ROSA LAZARO Ot I48.91 UNSPECIFIED ATRIAL FIBRILLATION 07/04/2018 RALPH BERGERON MD Ot G47.33 OBSTRUCTIVE SLEEP APNEA (ADULT) (PEDIATR 07/04/2018 RALPH BERGERON MD Ot I10 ESSENTIAL (PRIMARY) HYPERTENSION 07/04/2018 RALPH BERGERON MD Ot I48.91 UNSPECIFIED ATRIAL FIBRILLATION 07/04/2018 RALPH BERGERON MD Ot R00.2 PALPITATIONS 07/04/2018 SARITA KOO MD Ot E66.01 MORBID (SEVERE) OBESITY DUE TO EXCESS CA 07/04/2018 SARITA KOO MD Ot I10 ESSENTIAL (PRIMARY) HYPERTENSION 07/04/2018 SARITA KOO MD Ot I48.1 PERSISTENT ATRIAL FIBRILLATION 07/04/2018 SARITA KOO MD Ot K63.5 POLYP OF COLON 07/04/2018 SARITA OKO MD Ot Z12.11 ENCOUNTER FOR SCREENING FOR MALIGNANT NE 07/04/2018 SARITA KOO MD Ot Z68.44 BODY MASS INDEX (BMI) 60.0-69.9, ADULT 07/04/2018 SARITA KOO MD Ot Z79.899 OTHER AREA DEVELOPMENT CONSULTANT (CURRENT) DRUG THERAPY 07/08/2018 SARITA KOO MD Ot E66.01 MORBID (SEVERE) OBESITY DUE TO EXCESS CA 07/08/2018 SARITA KOO MD Ot I10 ESSENTIAL (PRIMARY) HYPERTENSION 07/08/2018 SARITA KOO MD Ot I48.1 PERSISTENT ATRIAL FIBRILLATION 07/08/2018 SARITA KOO MD Ot K63.5 POLYP OF COLON 07/08/2018 SARITA KOO MD, Ot Z12.11 ENCOUNTER FOR SCREENING FOR MALIGNANT NE 07/08/2018 SARITA KOO MD, Ot Z68.44 BODY MASS INDEX (BMI) 60.0-69.9, ADULT 07/08/2018 SARITA KOO MD, Ot Z79.899 OTHER AREA DEVELOPMENT CONSULTANT (CURRENT) DRUG THERAPY 07/15/2018 NESHA MARIA INES Bailee CRANE Ot M53.3 SACROCOCCYGEAL DISORDERS, NOT ELSEWHERE 07/15/2018 AMANDA SAMANIEGO DO S Ot N28.9 DISORDER OF KIDNEY AND URETER, UNSPECIFI 07/15/2018 AMANDA SAMANIEGO DO S Ot Q60.0 RENAL AGENESIS, UNILATERAL 07/15/2018 ROSA LAZARO Ot I48.91 UNSPECIFIED ATRIAL FIBRILLATION 07/15/2018 RALPH BERGERON MD, Ot G47.33 OBSTRUCTIVE SLEEP APNEA (ADULT) (PEDIATR 07/15/2018 RALPH BERGERON MD, Ot I10 ESSENTIAL (PRIMARY) HYPERTENSION 07/15/2018 RALPH BERGERON MD Ot I48.91 UNSPECIFIED ATRIAL FIBRILLATION 07/15/2018 RALPH BERGERON MD Ot R00.2 PALPITATIONS Procedures There is no data. Results Test [...] urine sediment by light microscopy FEW NRG Serum or plasma C reactive protein measurement (mass/volume) - 12/17/18 15:05 Serum or plasma C reactive protein measurement (mass/volume) 10.71 mg/dL 0.00-0.50 Blood lactic acid measurement (moles/volume) - 12/17/18 15:40 Blood lactic acid measurement (moles/volume) 1.18 mmol/L 0.50-2.00 Encounters ACCT No. Visit Date/Time Discharge Status Pt. Type Provider Facility Loc./Unit Complaint [id number] 07/04/2018 07:28:00 07/04/2018 10:30:00 DIS Outpatient SARITA KOO MD [facility] ENDO SCREENING [id number] 06/27/2018 05:31:00 06/27/2018 11:26:00 DIS Outpatient SARITA KOO MD [facility] PREOP COLONOSCOPY [id number] 04/25/2017 09:07:00 04/25/2017 23:59:59 CLS Outpatient RALPH BERGERON MD [facility] CARD I48.91 [id number] 04/22/2017 13:13:00 04/22/2017 23:59:59 CLS Outpatient AMANDA SAMANIEGO DO [facility] RAD RENAL INSUFFIENCY [id number] 04/22/2017 11:29:00 04/22/2017 23:59:59 CLS Outpatient RADERTERESA ROSA Michelle DATABASE MODELER [facility] CARD HX ATRIAL FIB [id number] 02/20/2017 10:16:00 02/20/2017 23:59:59 CLS Preadmit AMANDA SAMANIEGO DO [facility] RAD RENAL INSUFFICIENCY [id number] 12/10/2016 13:41:00 12/10/2016 23:59:59 CLS Outpatient MARIA INES JEFFRIES DAIRY HUSBANDMAN [facility] RAD SACRUM/COCCYX PAIN [id number] 10/05/2016 20:20:00 10/06/2016 06:45:00 DIS Outpatient KAMRON JESSICA DAIRY HUSBANDMAN [facility] SLEEP OBSERVED APNEAS, SNORING, HYPERTENSION [id number] 06/28/2014 07:36:00 06/28/2014 14:25:00 DIS Outpatient RALPH BERGERON MD [facility] CATH AFIB, [id number] 02/15/2014 15:38:00 02/15/2014 23:59:59 CLS Outpatient DELLA BURNETT DO [facility] CARD ARRHYTHMIA,HTN,OBESITY [id number] 02/05/2013 14:43:00 02/05/2013 23:59:59 CLS Outpatient DELLA BURNETT DO [facility] RAD GOUT, RT FOOT ANKLE PAIN FOR SEVERAL WEEKS [id number] 12/17/2018 15:58:00 ACT Inpatient OLGA GRIMM DO [facility] 4TH GALLSTONE, PANCREATITIS [id number] 12/17/2018 09:45:00 PEN Preadmit ASHU SERNA DAIRY HUSBANDMAN [facility] RAD ABDOMINAL PAIN [id number] 04/16/2018 04:03:00 Document Registration [id number] 05/28/2017 08:33:00 05/28/2017 23:59:00 DIS Outpatient CHAZ ROBERTSON 08/201706/19/2018 14:49:28 06/19/2018 23:59:59 CLS Outpatient Amanda Samaniego
--- NOTE | 2018-12-17 17:20 | NUR ---
ALEXANDRA SHABAZZ admitted to room 407-1, with an admitting diagnosis of GALLSTONE PANCREATITIS, on 12/17/18 from ED via WHEELCHAIR, accompanied by ED STAFF AND . ALEXANDRA SHABAZZ introduced to surroundings, call light, bed controls, phone, TV, temperature control, lights, meal times, smoking policy, visitor policy, side rail policy, bathrooms and showers. Patient Rights given to patient in the handbook. ALEXANDRA SHABAZZ verbalizes understanding that [facility] is not responsible for the loss or damage to any personal effects or valuables that are kept in the patients possession during their hospitalization. The following Patient Care Plans were discussed with the PATIENT: Discharge Planning, PANCREATITIS,CHOLECYSTIS and KNOWLEDGE DEFICIT. ALEXANDRA SHABAZZ verbalizes understanding of Interdisciplinary Patient Education. Patient and/or family were informed about the Rapid Response Team and its purpose.
[2018-12-17 17:41] VITALS: BP 146/21
[2018-12-17] MEDS ORDERED: CATHETER FLUSH 10 ML SYR IV PRN (18:00)
[2018-12-17] MEDS ORDERED: LACTATED RINGERS 1,000 ML IV SCH (18:00)
[2018-12-17] MEDS: metroNIDAZOLE 500MG/100ML IVPB 100 ML IV SCH ×2 (18:10→23:06)
--- NOTE | 2018-12-17 18:10 | Consultation-Cardiology ---
HPI-Cardiology Cardiology Consultation Date of Consultation 12/17/18 Date of Admission Time Seen by Provider: 18:05 Indication: cholelithiasis, acute pancreatitis HPI 58 years old gentleman with history of chronic atrial fibrillation, has been having abdominal pain with nausea and vomiting for a few days. Had an ultrasound showed gallstones in addition he was noted to have elevated amylase and lipase. He denied any chest pain, shortness of breath, palpitation, still having abdominal pain. No syncope or near syncopal episodes Home Medications & Allergies Allergies: Coded Allergies: No Known Drug Allergies (Unverified , 12/17/18) Home Medication List Reviewed: Yes TSI-Inbqfq-Nngodn Hx Patient Social History Marital Status: Alcohol Use: Denies Use Recreational Drug Use: No Smoking Status: Never a Smoker Recent Foreign Travel: No Recent Infectious Disease Expo: No Recent Hopitalizations: Yes (HERNIA-REPAIR AMANDA 04/2018) Physical Abuse Screen: No Sexual Abuse: No Past Medical History past medical history as described below Family Medical History Family History: Alcoholism 19 FATHER 19 MOTHER G8 BROTHER G8 BROTHER G8 BROTHER G8 SISTER Cardiovascular disease 19 FATHER 19 MOTHER G8 BROTHER G8 BROTHER G8 BROTHER G8 SISTER Drug abuse 19 FATHER 19 MOTHER G8 BROTHER G8 BROTHER G8 BROTHER G8 SISTER Review of Systems Constitutional: see HPI, malaise EENTM: see HPI, no symptoms reported Respiratory: see HPI; No cough; dyspnea on exertion; No hemoptysis, No orthopnea, No phlegm, No short of breath, No stridor, No wheezing, No other Cardiovascular: see HPI; No chest pain, No edema, No Hx of Intervention, No palpitations, No syncope, No vascular heart diseas, No other Gastrointestinal: RUQ, LUQ, see HPI, dysphagia, nausea, vomiting Genitourinary: no symptoms reported, see HPI Musculoskeletal: no symptoms reported, see HPI Skin: no symptoms reported, see HPI Psychiatric/Neurological: No Symptoms Reported, See HPI Reviewed Test Results Reviewed Test Results Lab Laboratory Tests Test 12/17/18 15:05 12/17/18 15:40 Range/Units C-Reactive Protein High Sensitivity 10.71 H 0.00-0.50 MG/DL Lactic Acid Level 1.18 0.50-2.00 MMOL/L Physical Exam Vital Signs Vital Signs - First Documented 12/17/18 12/17/18 14:17 17:01 Temp 97.6 Pulse 92 Resp 16 B/P (MAP) 193/109 (137) Pulse Ox 94 O2 Delivery Room Air Capillary Refill : Less Than 3 Seconds Height, Weight, BMI Height: 5'10.00" Weight: 445lbs. 2.0oz. 201.143577rx; 63.9 BMI Method:Stated General Appearance: No Apparent Distress, WD/WN Eyes: Bilateral Eye Normal Inspection, Bilateral Eye PERRL, Bilateral Eye EOMI HEENT: PERRL/EOMI, TMs Normal, Normal ENT Inspection, Pharynx Normal Neck: Full Range of Motion, Normal Inspection, Non Tender, Supple, Carotid Bruit Respiratory: Chest Non Tender, Lungs Clear, Normal Breath Sounds, No Accessory Muscle Use, No Respiratory Distress Cardiovascular: No Edema, No Gallop, No JVD, No Murmur, Normal Peripheral Pulses, Irregularly Irregular Gastrointestinal: Normal Bowel Sounds, No Organomegaly, No Pulsatile Mass, Soft , Distended, Tenderness Back: Normal Inspection, No CVA Tenderness, No Vertebral Tenderness Extremity: Normal Capillary Refill, Normal Inspection, Normal Range of Motion, Non Tender, No Calf Tenderness, No Pedal Edema Neurologic/Psychiatric: Alert, Oriented x3, No Motor/Sensory Deficits, Normal Mood/Affect Skin: Normal Color, Warm/Dry Lymphatic: No Adenopathy A/P-Cardiology Admission Diagnosis Acute pancreatitis Cholelithiasis Chronic atrial fibrillation Hypertension Assessment/Plan Acute pancreatitis, cholelithiasis, patient is admitted, continue without food and IV fluid, monitor amylase and lipase closely, hold all medications including oral anticoagulation. Persistent atrial fibrillation, seen by Dr. Zelaya in the past, was on Pradaxa and Xarelto in the past, treated with flecainide in the past, maintained on verapamil and Toprol-XL. continue to monitor heart rate at this time. [id number] score is 1, yearly risk of stroke without oral anticoagulation is 1.3 percent. Currently on Savaysa 60 mg daily, hold medication and monitor Hypertension, I am planning to restart home medication, monitor blood pressure Morbid obesity, BMI is 63 COPD, obstructive sleep apnea, using C Pap as an outpatient History of knee surgery, hernia repair surgery. Clinical Quality Measures DVT/VTE Risk/Contraindication: Risk Factor Score Per Nursin RFS Level Per Nursing on Admit: 3=High RALPH BERGERON MD Dec 17, 2018 18:09
[2018-12-17] MEDS: NS IV 1000 ML 1,000 ML IV SCH (18:43)
[2018-12-17] MEDS: fentaNYL INJECTION 100 MCG/2 ML AMP IV PRN ×3 (18:50→23:05)
--- NOTE | 2018-12-17 19:54 | CONSULTATION REPORT ---
DATE OF SERVICE: 12/17/2018 ATTENDING PRIMARY CARE PHYSICIAN: Dr. March. ADMITTING PHYSICIAN: Dr. Dickson. HISTORY OF PRESENT ILLNESS: The patient is a 58-year-old male, who was sent to the Emergency Department by his primary care physician after he had a laboratory evaluation ordered. He reports that he has had epigastric as well as right upper abdominal quadrant pain. He does have a history of pancreatitis in the past due to morbid obesity. He is currently at approximately 460 pounds and 5 feet 10 inches with a body mass index of 60. The other labs were also drawn, which did show elevation of total bilirubin of 3.3 as well as a slight elevation of AST and ALT with an amylase of 231 and lipase at 743. An ultrasound was performed, which did show gallstones; however, no ductal dilatation. More than likely, he does have a gallstone pancreatitis. PAST MEDICAL HISTORY: Hypertension, atrial fibrillation, sleep apnea, morbid obesity and degenerative joint disease. PAST SURGERIES: Ventral abdominal incisional hernia repair with mesh, open left knee surgery. ALLERGIES: No known drug allergies. MEDICATIONS: 1. Allopurinol 100 mg daily. 2. Cyclobenzaprine 10 mg p.r.n. 3. Hydrochlorothiazide 25 mg daily. 4. Tramadol p.r.n. 5. Verapamil 80 mg b.i.d. SOCIAL HISTORY: Negative smoke, social alcohol. REVIEW OF SYSTEMS: Well-nourished male currently in no acute distress. He is not experiencing any shortness of breath or difficulty breathing. No chest pain, palpitations, or diaphoresis. He has had pain in the epigastric region as well as right upper abdominal quadrant as well as mild nausea, no vomiting. No diarrhea or constipation. No red blood per rectum. No dark tarry stools. No fever or chills. No recent inadvertent weight loss. All other review of systems are negative. PHYSICAL EXAMINATION: VITAL SIGNS: Temperature 97.6, blood pressure 193/109, pulse 92, respirations 16, pulse ox 94% on room air. LUNGS: Decreased breath sounds bilaterally with a few scattered rales. HEART: Regular. No murmurs. EXTREMITIES: +1/3 bilateral lower extremity edema. Negative Homans sign. HEENT: No scleral icterus. No cervical lymphadenopathy. ABDOMEN: Soft, nondistended. There is pain in the epigastric region as well as the right upper abdominal quadrant. No peritoneal signs. ASSESSMENT AND PLAN: A 58-year-old male with gallstone pancreatitis. Based on the recent laboratory work as well as the ultrasound findings, he does have cholelithiasis and previous choledocholithiasis; however, there is no ductal dilatation to indicate any current obstruction of the bile duct. We will continue to monitor his laboratory work as well as clinical status. Once his amylase and lipase normalize as well as his total bilirubin and he is medically cleared from the standpoint of pulmonary as well as cardiac standpoint, he will need an eventual laparoscopic cholecystectomy. Job ID: [id number] DocumentID: [id number] Dictated Date: 12/17/2018 16:58:33 Fruit Washer Date: 12/17/2018 19:54:01 Dictated By: BELEN GONZALEZ MD
[2018-12-17 20:00] VITALS: BP 124/87
[2018-12-17] MEDS: HYDROcodone/APAP 7.5 MG/325 MG (LORTAB, LORCET PLUS) TABLET PO PRN (20:33)
[2018-12-18] VITALS (8 sets, daily range): BP systolic 102–189; BP diastolic 61–99
[2018-12-18] MEDS: fentaNYL INJECTION 100 MCG/2 ML AMP IV PRN ×8 (01:07→15:01)
[2018-12-18] MEDS: HYDROcodone/APAP 7.5 MG/325 MG (LORTAB, LORCET PLUS) TABLET PO PRN ×3 (01:08→12:46)
[2018-12-18 04:52] LABS: BASOPHILS % (AUTO) 0 % (0-10); EOSINOPHILS % (AUTO) 0 % (0-10); HEMATOCRIT 45 % (40-54); HEMOGLOBIN 15.4 G/DL (13.3-17.7); LYMPHOCYTES # (AUTO) 1.1 X 10^3 (1.0-4.0); LYMPHOCYTES % (AUTO) 7 % (12-44); MEAN CORPUSCULAR HEMOGLOBIN 30 PG (25-34); MEAN CORPUSCULAR HGB CONC 34 G/DL (32-36); MEAN CORPUSCULAR VOLUME 87 FL (80-99); MEAN PLATELET VOLUME 12.8 FL (7.4-10.4); MONOCYTES # (AUTO) 1.9 X 10^3 (0.0-1.0); MONOCYTES % (AUTO) 12 % (0-12); NEUTROPHILS # (AUTO) 12.2 X 10^3 (1.8-7.8); NEUTROPHILS % (AUTO) 81 % (42-75); PLATELET COUNT 175 10^3/uL (130-400); RED CELL DISTRIBUTION WIDTH 14.2 % (10.0-14.5); WHITE BLOOD COUNT 15.1 10^3/uL (4.3-11.0)
[2018-12-18 05:04] LABS: BAND NEUTROPHILS 0 %; BASOPHILS % (MANUAL) 0 %; EOSINOPHILS % (MANUAL) 0 %; LYMPHOCYTES % (MANUAL) 6 %; MONOCYTES % (MANUAL) 9 %; NEUTROPHILS % (MANUAL) 85 %; RBC MORPH NORMAL
[2018-12-18 05:12] LABS: ALANINE AMINOTRANSFERASE 263 U/L (0-55); ALBUMIN 3.6 GM/DL (3.2-4.5); ALKALINE PHOSPHATASE 126 U/L (40-136); AMYLASE 404 U/L (25-125); BILIRUBIN,TOTAL 5.1 MG/DL (0.1-1.0); BUN/CREATININE RATIO 13; CALCIUM 9.2 MG/DL (8.5-10.1); CARBON DIOXIDE 23 MMOL/L (21-32); CHLORIDE 102 MMOL/L (98-107); CREATININE SERUM 1.05 MG/DL (0.60-1.30); GFR ESTIMATED > 60; GLUCOSE 124 MG/DL (70-105); POTASSIUM 3.8 MMOL/L (3.6-5.0); SODIUM 137 MMOL/L (135-145); TOTAL PROTEIN 6.8 GM/DL (6.4-8.2)
[2018-12-18] MEDS: metroNIDAZOLE 500MG/100ML IVPB 100 ML IV SCH ×4 (05:19→23:41)
[2018-12-18 05:41] LABS: LIPASE 1436 U/L (8-78)
--- NOTE | 2018-12-18 08:16 | Cardiology Progress Note ---
Subjective Date Seen by Provider: Dec 18, 2018 Time Seen by Provider: 08:14 Subjective/Events-last exam patient is laying down in bed. Still having abdominal pain. No chest pain. Review of Systems General: No Chills, No Night Sweats, No Fatigue, No Malaise, No Appetite, No Other HEENT: No Head Aches, No Visual Changes, No Eye Pain, No Ear Pain, No Dysphasia , No Sinus Congestion, No Post Nasal Drip, No Sore Throat, No Other Pulmonary: No Dyspnea, No Cough, No Pleuritic Chest Pain, No Other Cardiovascular: No: Chest Pain, Palpitations, Orthopnea, Paroxysmal Noc. Dyspnea, Edema, Lt Headedness, Other Focused Exam Lactate Level 12/17/18 15:40: Lactic Acid Level 1.18 Objective-Cardiology Exam Last Set of Vital Signs Vital Signs 12/18/18 07:40 Temp 97.5 Pulse 100 Resp 20 B/P (MAP) 141/95 (110) Pulse Ox 92 O2 Delivery Room Air Capillary Refill : Less Than 3 SecondsLess Than 3 Seconds I&O Intake and Output 12/18/18 00:00 Intake Total 1000 ml Balance 1000 ml Intake Oral 0 ml IV Total 1000 ml # Voids 1 Daily Weight Change No No General: Alert, Oriented X3, Cooperative HEENT: Atraumatic, PERRLA Neck: Supple, No JVD, No Thyromegaly Lungs: Clear to Auscultation, Normal Air Movement Heart: Regular Rate, Normal S1, Normal S2, No Murmurs Abdomen: Soft, No Hepatosplenomegaly, No Masses, Other (abdominal pain) Extremities: No Clubbing, No Cyanosis, No Edema, Normal Pulses, No Tenderness/ Swelling Skin: No Rashes, No Breakdown, No Significant Lesion Neuro: Normal Gait, Normal Speech, Strength at 5/5 X4 Ext, Normal Tone, Sensation Intact Psych/Mental Status: Mental Status NL, Mood NL Results Lab Laboratory Tests 12/18/18 04:05 Laboratory Tests Test 12/17/18 15:05 12/17/18 15:40 12/18/18 04:05 Range/Units C-Reactive Protein High Sensitivity 10.71 H 0.00-0.50 MG/DL Lactic Acid Level 1.18 0.50-2.00 MMOL/L White Blood Count 15.1 H 4.3-11.0 10^3/uL Red Blood Count 5.14 4.35-5.85 10^6/uL Hemoglobin 15.4 13.3-17.7 G/DL Hematocrit 45 40-54 % Mean Corpuscular Volume 87 80-99 FL Mean Corpuscular Hemoglobin 30 25-34 PG Mean Corpuscular Hemoglobin Concent 34 32-36 G/DL Red Cell Distribution Width 14.2 10.0-14.5 % Platelet Count 175 130-400 10^3/uL Mean Platelet Volume 12.8 H 7.4-10.4 FL Neutrophils (%) (Auto) 81 H 42-75 % Lymphocytes (%) (Auto) 7 L 12-44 % Monocytes (%) (Auto) 12 0-12 % Eosinophils (%) (Auto) 0 0-10 % Basophils (%) (Auto) 0 0-10 % Neutrophils # (Auto) 12.2 H 1.8-7.8 X 10^3 Lymphocytes # (Auto) 1.1 1.0-4.0 X 10^3 Monocytes # (Auto) 1.9 H 0.0-1.0 X 10^3 Eosinophils # (Auto) 0.0 0.0-0.3 10^3/uL Basophils # (Auto) 0.0 0.0-0.1 10^3/uL Neutrophils % (Manual) 85 % Lymphocytes % (Manual) 6 % Monocytes % (Manual) 9 % Eosinophils % (Manual) 0 % Basophils % (Manual) 0 % Band Neutrophils 0 % Blood Morphology Comment NORMAL Sodium Level 137 135-145 MMOL/L Potassium Level 3.8 3.6-5.0 MMOL/L Chloride Level 102 98-107 MMOL/L Carbon Dioxide Level 23 21-32 MMOL/L Anion Gap 12 5-14 MMOL/L Blood Urea Nitrogen 14 7-18 MG/DL Creatinine 1.05 0.60-1.30 MG/DL Estimat Glomerular Filtration Rate > 60 BUN/Creatinine Ratio 13 Glucose Level 124 H 70-105 MG/DL Calcium Level 9.2 8.5-10.1 MG/DL Corrected Calcium 9.5 8.5-10.1 MG/DL Total Bilirubin 5.1 H 0.1-1.0 MG/DL Aspartate Amino Transf (AST/SGOT) 217 H 5-34 U/L Alanine Aminotransferase (ALT/SGPT) 263 H 0-55 U/L Alkaline Phosphatase 126 40-136 U/L Total Protein 6.8 6.4-8.2 GM/DL Albumin 3.6 3.2-4.5 GM/DL Amylase Level 404 H 25-125 U/L Lipase 1436 H 8-78 U/L A/P-Cardiology Admission Diagnosis Acute pancreatitis Cholelithiasis Chronic atrial fibrillation Hypertension Assessment/Plan Acute pancreatitis, cholelithiasis, and malaise and lipase are still elevated. Continue to monitor Persistent atrial fibrillation, seen by Dr. Zelaya in the past, was on Pradaxa and Xarelto in the past, treated with flecainide in the past, maintained on verapamil and Toprol-XL. continue to monitor heart rate at this time. [id number] score is 1, yearly risk of stroke without oral anticoagulation is 1.3 percent. Currently on Savaysa 60 mg daily, hold oral anticoagulation and monitor Hypertension, monitor blood pressure Morbid obesity, BMI is 63 COPD, obstructive sleep apnea, using C Pap as an outpatient History of knee surgery, hernia repair surgery. Recurrent abdominal pain, persistent, managed by Dr. Devi Clinical Quality Measures DVT/VTE Risk/Contraindication: Risk Factor Score Per Nursin RFS Level Per Nursing on Admit: 3=High RALPH BERGERON MD Dec 18, 2018 08:16
[2018-12-18] MEDS: NS IV 1000 ML 1,000 ML IV SCH ×2 (08:34→20:16)
[2018-12-18] MEDS: CIPROFLOXACIN IV 400MG/200ML 200 ML IV SCH ×2 (08:34→20:16)
[2018-12-18] MEDS: PANTOPRAZOLE 40 MG (PROTONIX) VIAL IV SCH (08:34)
[2018-12-18] MEDS ORDERED: DOCU-143 PO (08:58)
[2018-12-18] MEDS ORDERED: LISI-552 PO (08:58)
[2018-12-18] MEDS ORDERED: EDOX60TA PO (08:58)
[2018-12-18] MEDS ORDERED: MULT-178 PO (08:58)
[2018-12-18] MEDS ORDERED: ONDA4TAB10 PO (08:58)
[2018-12-18] MEDS ORDERED: MULT-1104 PO (08:59)
--- NOTE | 2018-12-18 09:11 | NUR ---
WENT OVER THE EXT MED HX WITH THE PATIENT AND HE VERIFIED HOW HE TAKES THEM. HE ALSO HAS HIS PILL WIRE COMMUNICATIONS ENGINEER HERE AND I VERIFIED HOW THE MEDS ARE SET UP IN THAT. HS: COLACE VERAPAMIL AM: SAVAYSA 60MG LISINOPRIL 20M ALLOPURINOL 100MG VERAPAMIL 80MG HCTZ 25MG MTV GLUCOSAMINE VITAMIN D MAGNESIUM ADDITIONALLY HE STATES HE TAKES B12 AND LYCOPENE OTC DAILY. HE ALSO STATES HE HAS FLEXERIL AND TRAMADOL ON HAND NEEDED BUT DOES NOT USE THEM OFTEN. HE RECENTLY FILLED ZOFRAN PRN. NONE OF THESE ARE IN HIS PILL WIRE COMMUNICATIONS ENGINEER.
--- NOTE | 2018-12-18 10:07 | History & Physical-Hospitalist ---
History of Present Illness HPI/Chief Complaint Chief Complaint: Abdominal pain with nausea and vomiting HPI: This is a 58yo morbidly obese BMI of 64 gentlemen who presented to Dr. March's office with severe nausea and vomiting found to have acute pancreatitis with a history of pancreatitis in the past. He was originally set for direct admission but due to the fact that he was too heavy to undergo CT scan I recommended him to be sent to the ER for evaluation in which Dr. Diaz consulted Dr. Devi, recommended NPO clear IV fluids, IV antibiotics and ultimately a cholecystectomy. Dr. Silva was also consulted for history of heart related conditions. Currently he is requiring pain medication of Fentanyl but have to limit that due to high risk of CO2 retention due to morbid obesity and obstructive sleep apnea. Source: patient Exam Limitations: no limitations Date Seen 12/18/18 Time Seen by a Provider: 09:30 Attending Physician Shruthi Grimm DO PCP Tim March MD Referring Physician Date of Admission Dec 17, 2018 at 15:58 Home Medications & Allergies Home Medications Reviewed patient Home Medication Reconciliation performed by pharmacy medication reconciliations generator technician and/or nursing. Patients Allergies have been reviewed. Allergies Allergies Coded Allergies No Known Drug Allergies (Unverified12/17/18) Past Xrzzalr-Waulxy-Cobdtm Hx Past Med/Social Hx: Reviewed Nursing Past Med/Soc Hx, Reviewed and Corrections made Patient Social History Marrital Status: Alcohol Use: Denies Use Recreational Drug Use: No Smoking Status: Never a Smoker Physical Abuse Screen: No Sexual Abuse: No Recent Foreign Travel: No Contact w/other who traveled: No Recent Hopitalizations: Yes ([facility] 04/2018) Recent Infectious Disease Expo: No Immunizations Up To Date Pediatric: Yes Seasonal Allergies Seasonal Allergies: No Past Medical History Surgeries: Abdominal, Orthopedic Currently Using CPAP: Yes Cardiac: Atrial Fibrillation, Hypertension Reproductive: No Sexually Transmitted Disease: No HIV/AIDS: No Gastrointestinal: Abdominal Hernia Loss of Vision: Bilateral Hearing Impairment: Denies History of Blood Disorders: No Adverse Reaction to Blood Manning: No (N/A) Family History Reviewed Nursing Family Hx Alcoholism 19 FATHER 19 MOTHER G8 BROTHER G8 BROTHER G8 BROTHER G8 SISTER Cardiovascular disease 19 FATHER 19 MOTHER G8 BROTHER G8 BROTHER G8 BROTHER G8 SISTER Drug abuse 19 FATHER 19 MOTHER G8 BROTHER G8 BROTHER G8 BROTHER G8 SISTER Review of Systems Constitutional: see HPI EENTM: no symptoms reported Respiratory: no symptoms reported Cardiovascular: no symptoms reported Gastrointestinal: loss of appetite, nausea, vomiting Genitourinary: decreased output Musculoskeletal: no symptoms reported Skin: no symptoms reported Psychiatric/Neurological: No Symptoms Reported All Other Systems Reviewed Negative Unless Noted: Yes Physical Exam Physical Exam Vital Signs Vital Signs - First Documented 12/17/18 12/17/18 14:17 17:01 Temp 97.6 Pulse 92 Resp 16 B/P (MAP) 193/109 (137) Pulse Ox 94 O2 Delivery Room Air Capillary Refill : Less Than 3 SecondsLess Than 3 Seconds Height, Weight, BMI Height: 5'10.00" Weight: 445lbs. 2.0oz. [id number]; 63.9 BMI Method:Stated General Appearance: WD/WN, Chronically ill, Mild Distress, Obese Eyes: Right Eye Normal Inspection, Right Eye PERRL HEENT: PERRL/EOMI, Normal ENT Inspection, Pharynx Normal, Moist Mucous Membranes Neck: Full Range of Motion, Normal Inspection, Non Tender Respiratory: Chest Non Tender, Lungs Clear, Normal Breath Sounds, No Accessory Muscle Use, No Respiratory Distress Cardiovascular: Regular Rate, Rhythm, No Edema, No Gallop, No JVD, No Murmur, Normal Peripheral Pulses Gastrointestinal: Normal Bowel Sounds, No Organomegaly, No Pulsatile Mass, Soft , Tenderness Back: Normal Inspection, No CVA Tenderness, No Vertebral Tenderness Extremity: Normal Capillary Refill, Normal Inspection, Normal Range of Motion, Non Tender, No Calf Tenderness, No Pedal Edema Neurologic/Psychiatric: Alert, Oriented x3, No Motor/Sensory Deficits, Normal Mood/Affect Skin: Normal Color, Warm/Dry Lymphatic: No Adenopathy Results Results/Procedures Labs Laboratory Tests 12/18/18 04:05 Patient resulted labs reviewed. Assessment/Plan Admission Diagnosis Assessment: Acute gallstone pancreatitis Morbid obesity AF LIZZY Plan: Abx Pain control IVF Limit narcs due to high risk for obesity hypoventilation syndrome causing CO2 retention Admission Status: Inpatient Order (span 2 midnights) Reason for Inpatient Admission: Pancreatitis will require 3 days of inpatient Diagnosis/Problems Diagnosis/Problems (1) Acute gallstone pancreatitis Status: Acute (2) LIZZY (obstructive sleep apnea) Status: Chronic (3) Obesity, morbid, BMI 50 or higher Status: Chronic (4) Abdominal pain Status: Acute Qualifiers: Abdominal location: epigastric Qualified Codes: R10.13 - Epigastric pain (5) Nausea & vomiting Status: Acute Qualifiers: Vomiting type: unspecified (6) Elevated liver enzymes Status: Acute Clinical Quality Measures DVT/VTE Risk/Contraindication: Risk Factor Score Per Nursin RFS Level Per Nursing on Admit: 3=High SHRUTHI GRIMM DO Dec 18, 2018 10:07
[2018-12-18] MEDS ORDERED: HYDROmorphone 2 MG/ML VIAL (DILAUDID) IV PRN (16:15)
[2018-12-18 17:35] LABS: ALANINE AMINOTRANSFERASE 314 U/L (0-55); ALBUMIN 3.5 GM/DL (3.2-4.5); ALKALINE PHOSPHATASE 154 U/L (40-136); AMYLASE 317 U/L (25-125); BILIRUBIN,TOTAL 6.2 MG/DL (0.1-1.0); BUN/CREATININE RATIO 12; CALCIUM 9.1 MG/DL (8.5-10.1); CARBON DIOXIDE 26 MMOL/L (21-32); CHLORIDE 103 MMOL/L (98-107); CREATININE SERUM 1.06 MG/DL (0.60-1.30); GFR ESTIMATED > 60; GLUCOSE 122 MG/DL (70-105); LIPASE 1140 U/L (8-78); POTASSIUM 3.9 MMOL/L (3.6-5.0); SODIUM 138 MMOL/L (135-145); TOTAL PROTEIN 6.7 GM/DL (6.4-8.2)
--- NOTE | 2018-12-18 17:48 | Progress Note (SOAP) ---
Subjective Date Seen by a Provider: Dec 18, 2018 Time Seen by a Provider: 17:40 Subjective/Events-last exam doing ok. clinically stable. T-raman and other LFT's increasing however patient stable and not showing any signs of cholangitis. if increase tomorrow in am will request transfer to for ERCP. will then neen interval lap cholecystectomy. Focused Exam Lactate Level 12/17/18 15:40: Lactic Acid Level 1.18 Objective Exam Vital Signs Date Time Temp Pulse Resp B/P (MAP) Pulse Ox O2 Delivery O2 Flow Rate FiO2 12/18/18 15:40 98.2 96 20 169/99 (122) 95 Room Air 12/18/18 13:00 121 12/18/18 11:25 98.2 90 20 139/82 (101) 92 Room Air 12/18/18 08:00 Room Air 12/18/18 07:40 97.5 100 20 141/95 (110) 92 Room Air 12/18/18 07:00 98 12/18/18 04:00 98.3 96 14 102/61 (75) 93 Room Air 12/18/18 01:00 106 12/18/18 00:26 97.0 95 18 153/96 (115) 90 Room Air 12/17/18 20:00 98.6 99 18 124/87 (99) 93 Room Air 12/17/18 20:00 93 Room Air 12/17/18 19:00 98 I & O 12/18/18 07:00 Intake Total 1000 ml Balance 1000 ml Capillary Refill : Less Than 3 SecondsLess Than 3 Seconds General Appearance: No Apparent Distress HEENT: PERRL/EOMI Neck: Full Range of Motion Respiratory: Chest Non Tender, Decreased Breath Sounds Cardiovascular: Regular Rate, Rhythm Gastrointestinal: normal bowel sounds, soft Extremity: Normal Capillary Refill Neurologic/Psychiatric: Alert, Oriented x3 Skin: Normal Color Lymphatic: No Adenopathy Results Lab Laboratory Tests 12/18/18 04:05: White Blood Count 15.1H, Red Blood Count 5.14, Hemoglobin 15.4, Hematocrit 45, Mean Corpuscular Volume 87, Mean Corpuscular Hemoglobin 30, Mean Corpuscular Hemoglobin Concent 34, Red Cell Distribution Width 14.2, Platelet Count 175, Mean Platelet Volume 12.8H, Neutrophils (%) (Auto) 81H, Lymphocytes (%) (Auto) 7L, Monocytes (%) (Auto) 12, Eosinophils (%) (Auto) 0, Basophils (%) (Auto) 0, Neutrophils # (Auto) 12.2H, Lymphocytes # (Auto) 1.1, Monocytes # (Auto) 1.9H, Eosinophils # (Auto) 0.0, Basophils # (Auto) 0.0, Neutrophils % (Manual) 85, Lymphocytes % (Manual) 6, Monocytes % (Manual) 9, Eosinophils % (Manual) 0, Basophils % (Manual) 0, Band Neutrophils 0, Blood Morphology Comment NORMAL, Sodium Level 137, Potassium Level 3.8, Chloride Level 102, Carbon Dioxide Level 23, Anion Gap 12, Blood Urea Nitrogen 14, Creatinine 1.05, Estimat Glomerular Filtration Rate > 60, BUN/Creatinine Ratio 13, Glucose Level 124H, Calcium Level 9.2, Corrected Calcium 9.5, Total Bilirubin 5.1H, Aspartate Amino Transf ( AST/SGOT) 217H, Alanine Aminotransferase (ALT/SGPT) 263H, Alkaline Phosphatase 126, Total Protein 6.8, Albumin 3.6, Amylase Level 404H, Lipase 1436H 12/18/18 17:00: Sodium Level 138, Potassium Level 3.9, Chloride Level 103, Carbon Dioxide Level 26, Anion Gap 9, Blood Urea Nitrogen 13, Creatinine 1.06, Estimat Glomerular Filtration Rate > 60, BUN/Creatinine Ratio 12, Glucose Level 122H, Calcium Level 9.1, Corrected Calcium 9.5, Total Bilirubin 6.2H, Aspartate Amino Transf ( AST/SGOT) 255H, Alanine Aminotransferase (ALT/SGPT) 314H, Alkaline Phosphatase 154H, Total Protein 6.7, Albumin 3.5, Amylase Level 317H, Lipase 1140H Microbiology 12/17/18 Blood Culture - Preliminary, Resulted No growth Assessment/Plan Assessment/Plan Assess & Plan/Chief Complaint gallstone pancreatitis. increase LFT's however no signs cholangitis. if increase in am will arrange for GI referral and ERCP. Clinical Quality Measures DVT/VTE Risk/Contraindication: Risk Factor Score Per Nursin RFS Level Per Nursing on Admit: 3=High BELEN GONZALEZ MD Dec 18, 2018 17:48
[2018-12-18] MEDS: HYDROmorphone 2 MG/ML VIAL (DILAUDID) IV PRN ×3 (18:29→23:10)
--- NOTE | 2018-12-18 19:30 | NUR ---
PT BP 190/[address] GRIMM NOTIFIED. NEW ORDER TO RESTARTED HOME BP MEDICATIONS
[2018-12-18] MEDS: oxyCODONE/APAP 10/325MG (PERCOCET 10) TABLET PO PRN (20:15)
[2018-12-18] MEDS: ONDANSETRON 4 MG/2 ML (SDV) Z0FRAN IV PRN (20:35)
[2018-12-18] MEDS: VERAPAMIL 80 MG (ISOPTIN) TAB PO SCH (20:35)
[2018-12-19] MEDS: oxyCODONE/APAP 10/325MG (PERCOCET 10) TABLET PO PRN (00:47)
[2018-12-19] MEDS: HYDROmorphone 2 MG/ML VIAL (DILAUDID) IV PRN ×6 (00:47→17:09)
[2018-12-19] MEDS: ONDANSETRON 4 MG/2 ML (SDV) Z0FRAN IV PRN (00:52)
[2018-12-19] MEDS: PROMETHAZINE INJ 25 MG/ML (PHENERGAN) AMP IVP PRN ×3 (04:09→17:11)
[2018-12-19 04:37] VITALS: BP 133/92
[2018-12-19] MEDS: metroNIDAZOLE 500MG/100ML IVPB 100 ML IV SCH ×2 (05:19→12:01)
[2018-12-19 06:25] LABS: BASOPHILS % (AUTO) 0 % (0-10); EOSINOPHILS % (AUTO) 0 % (0-10); HEMATOCRIT 44 % (40-54); HEMOGLOBIN 14.8 G/DL (13.3-17.7); LYMPHOCYTES % (AUTO) 7 % (12-44); MEAN CORPUSCULAR HEMOGLOBIN 30 PG (25-34); MEAN CORPUSCULAR HGB CONC 34 G/DL (32-36); MEAN CORPUSCULAR VOLUME 89 FL (80-99); MEAN PLATELET VOLUME 12.4 FL (7.4-10.4); MONOCYTES # (AUTO) 1.7 X 10^3 (0.0-1.0); MONOCYTES % (AUTO) 12 % (0-12); NEUTROPHILS # (AUTO) 11.9 X 10^3 (1.8-7.8); NEUTROPHILS % (AUTO) 81 % (42-75); PLATELET COUNT 169 10^3/uL (130-400); RED CELL DISTRIBUTION WIDTH 14.4 % (10.0-14.5); WHITE BLOOD COUNT 14.7 10^3/uL (4.3-11.0)
[2018-12-19 06:46] LABS: ALANINE AMINOTRANSFERASE 335 U/L (0-55); ALBUMIN 3.3 GM/DL (3.2-4.5); ALKALINE PHOSPHATASE 182 U/L (40-136); AMYLASE 215 U/L (25-125); BILIRUBIN,TOTAL 6.5 MG/DL (0.1-1.0); BUN/CREATININE RATIO 12; CARBON DIOXIDE 24 MMOL/L (21-32); CHLORIDE 104 MMOL/L (98-107); GFR ESTIMATED > 60; GLUCOSE 114 MG/DL (70-105); LIPASE 831 U/L (8-78); POTASSIUM 4.2 MMOL/L (3.6-5.0); SODIUM 139 MMOL/L (135-145); TOTAL PROTEIN 6.5 GM/DL (6.4-8.2)
[2018-12-19 08:00] VITALS: BP 132/83
[2018-12-19] MEDS: CIPROFLOXACIN IV 400MG/200ML 200 ML IV SCH (08:42)
[2018-12-19] MEDS: PANTOPRAZOLE 40 MG (PROTONIX) VIAL IV SCH (08:43)
--- NOTE | 2018-12-19 08:44 | Progress Note-Hospitalist ---
Subjective HPI/CC On Admission Date Seen by Provider: Dec 19, 2018 Time Seen by Provider: 09:00 Chief Complaint: Abdominal pain with nausea and vomiting HPI: This is a 58yo morbidly obese BMI of 64 gentlemen who presented to Dr. March's office with severe nausea and vomiting found to have acute pancreatitis with a history of pancreatitis in the past. He was originally set for direct admission but due to the fact that he was too heavy to undergo CT scan I recommended him to be sent to the ER for evaluation in which Dr. Diaz consulted Dr. Devi, recommended NPO clear IV fluids, IV antibiotics and ultimately a cholecystectomy. Dr. Silva was also consulted for history of heart related conditions. Currently he is requiring pain medication of Fentanyl but have to limit that due to high risk of CO2 retention due to morbid obesity and obstructive sleep apnea. Subjective/Events-last exam Patient much improved Dilaudid is helping more than the Fentanyl did yesterday No more nausea and vomiting Amylase and lipase are improving along with liver enzymes Maintain on antibiotic coverage Will start Lovenox if okay with Dr. Devi so unsure when cholecystectomy will be completed No evidence of any CO2 narcosis or respiratory failure Review of Systems General: Fatigue Gastrointestinal: Abdominal Pain Focused Exam Lactate Level 12/17/18 15:40: Lactic Acid Level 1.18 Objective Exam Vital Signs Vital Signs Date Time Temp Pulse Resp B/P (MAP) Pulse Ox O2 Delivery O2 Flow Rate FiO2 12/19/18 08:00 98.5 120 18 132/83 (99) 93 Room Air Capillary Refill : Less Than 3 SecondsLess Than 3 Seconds General Appearance: No Apparent Distress, WD/WN, Obese HEENT: PERRL/EOMI Neck: Full Range of Motion Respiratory: Chest Non Tender, Lungs Clear, Normal Breath Sounds, No Accessory Muscle Use Cardiovascular: Regular Rate, Rhythm Gastrointestinal: Normal Bowel Sounds, No Organomegaly, No Pulsatile Mass, Soft , Tenderness Back: Normal Inspection, No CVA Tenderness, No Vertebral Tenderness Extremity: Normal Capillary Refill Neurologic/Psychiatric: Alert, Oriented x3 Skin: Normal Color Lymphatic: No Adenopathy Results/Procedures Lab Laboratory Tests 12/18/18 17:00 12/19/18 06:15 Patient resulted labs reviewed. Assessment/Plan Assessment and Plan Assess & Plan/Chief Complaint Assessment: Acute gallstone pancreatitis Morbid obesity AF LIZZY HTN DVT PPx with Lovenox Plan: Abx Pain control IVF Limit narcs due to high risk for obesity hypoventilation syndrome causing CO2 retention Dilaudid Monitor labs Lovenox Diagnosis/Problems Diagnosis/Problems (1) Acute gallstone pancreatitis Status: Acute (2) LIZZY (obstructive sleep apnea) Status: Chronic (3) Obesity, morbid, BMI 50 or higher Status: Chronic (4) Abdominal pain Status: Acute Qualifiers: Abdominal location: epigastric Qualified Codes: R10.13 - Epigastric pain (5) Nausea & vomiting Status: Resolved Qualifiers: Vomiting type: unspecified Resolution Date/Time: 12/19/18 @ 11:47 (6) Elevated liver enzymes Status: Acute Clinical Quality Measures DVT/VTE Risk/Contraindication: Risk Factor Score Per Nursin RFS Level Per Nursing on Admit: 3=High OLGA GRIMM DO Dec 19, 2018 08:44
[2018-12-19] MEDS: VERAPAMIL 80 MG (ISOPTIN) TAB PO SCH (08:45)
[2018-12-19] MEDS: NS IV 1000 ML 1,000 ML IV SCH (08:45)
[2018-12-19] MEDS ORDERED: lisINopril 20 MG (PRINIVIL) TABLET PO SCH (09:00)
[2018-12-19] MEDS ORDERED: NON-FORMULARY MEDICATION 1 EA EA (Hydrochlorothiazide 25 MG) PO SCH (09:00)
[2018-12-19] MEDS ORDERED: HYDROCHLOROTHIAZIDE 25 MG (HCTZ) TAB PO SCH (09:00)
--- NOTE | 2018-12-19 10:15 | Cardiology Progress Note ---
Subjective Date Seen by Provider: Dec 19, 2018 Time Seen by Provider: 10:14 Subjective/Events-last exam patient is laying down in bed. No new complaint, having abdominal pain nausea and vomiting Review of Systems General: No Chills, No Night Sweats, No Fatigue, No Malaise, No Appetite, No Other HEENT: No Head Aches, No Visual Changes, No Eye Pain, No Ear Pain, No Dysphasia , No Sinus Congestion, No Post Nasal Drip, No Sore Throat, No Other Pulmonary: No Dyspnea, No Cough, No Pleuritic Chest Pain, No Other Cardiovascular: No: Chest Pain, Palpitations, Orthopnea, Paroxysmal Noc. Dyspnea, Edema, Lt Headedness, Other Focused Exam Lactate Level 12/17/18 15:40: Lactic Acid Level 1.18 Objective-Cardiology Exam Last Set of Vital Signs Vital Signs 12/19/18 08:00 Temp 98.5 Pulse 120 Resp 18 B/P (MAP) 132/83 (99) Pulse Ox 93 O2 Delivery Room Air Capillary Refill : Less Than 3 SecondsLess Than 3 Seconds I&O Intake and Output 12/19/18 00:00 Intake Total 1590 ml Balance 1590 ml Intake Oral 390 ml IV Total 1200 ml # Voids 6 General: Alert, Oriented X3, Cooperative HEENT: Atraumatic, PERRLA Neck: Supple, No JVD, No Thyromegaly Lungs: Clear to Auscultation, Normal Air Movement Heart: Regular Rate, Normal S1, Normal S2, No Murmurs Abdomen: Soft, No Hepatosplenomegaly, No Masses, Other (abdominal pain) Extremities: No Clubbing, No Cyanosis, No Edema, Normal Pulses, No Tenderness/ Swelling Skin: No Rashes, No Breakdown, No Significant Lesion Neuro: Normal Gait, Normal Speech, Strength at 5/5 X4 Ext, Normal Tone, Sensation Intact Psych/Mental Status: Mental Status NL, Mood NL Results Lab Laboratory Tests 12/18/18 17:00 12/19/18 06:15 Laboratory Tests Test 12/18/18 17:00 12/19/18 06:15 Range/Units Sodium Level 138 139 135-145 MMOL/L Potassium Level 3.9 4.2 3.6-5.0 MMOL/L Chloride Level 103 104 98-107 MMOL/L Carbon Dioxide Level 26 24 21-32 MMOL/L Anion Gap 9 11 5-14 MMOL/L Blood Urea Nitrogen 13 13 7-18 MG/DL Creatinine 1.06 1.10 0.60-1.30 MG/DL Estimat Glomerular Filtration Rate > 60 > 60 BUN/Creatinine Ratio 12 12 Glucose Level 122 H 114 H 70-105 MG/DL Calcium Level 9.1 9.0 8.5-10.1 MG/DL Corrected Calcium 9.5 9.6 8.5-10.1 MG/DL Total Bilirubin 6.2 H 6.5 H 0.1-1.0 MG/DL Aspartate Amino Transf (AST/SGOT) 255 H 258 H 5-34 U/L Alanine Aminotransferase (ALT/SGPT) 314 H 335 H 0-55 U/L Alkaline Phosphatase 154 H 182 H 40-136 U/L Total Protein 6.7 6.5 6.4-8.2 GM/DL Albumin 3.5 3.3 3.2-4.5 GM/DL Amylase Level 317 H 215 H 25-125 U/L Lipase 1140 H 831 H 8-78 U/L White Blood Count 14.7 H 4.3-11.0 10^3/uL Red Blood Count 4.95 4.35-5.85 10^6/uL Hemoglobin 14.8 13.3-17.7 G/DL Hematocrit 44 40-54 % Mean Corpuscular Volume 89 80-99 FL Mean Corpuscular Hemoglobin 30 25-34 PG Mean Corpuscular Hemoglobin Concent 34 32-36 G/DL Red Cell Distribution Width 14.4 10.0-14.5 % Platelet Count 169 130-400 10^3/uL Mean Platelet Volume 12.4 H 7.4-10.4 FL Neutrophils (%) (Auto) 81 H 42-75 % Lymphocytes (%) (Auto) 7 L 12-44 % Monocytes (%) (Auto) 12 0-12 % Eosinophils (%) (Auto) 0 0-10 % Basophils (%) (Auto) 0 0-10 % Neutrophils # (Auto) 11.9 H 1.8-7.8 X 10^3 Lymphocytes # (Auto) 1.0 1.0-4.0 X 10^3 Monocytes # (Auto) 1.7 H 0.0-1.0 X 10^3 Eosinophils # (Auto) 0.0 0.0-0.3 10^3/uL Basophils # (Auto) 0.0 0.0-0.1 10^3/uL A/P-Cardiology Admission Diagnosis Acute pancreatitis Cholelithiasis Chronic atrial fibrillation Hypertension Assessment/Plan Acute pancreatitis, cholelithiasis, and malaise and lipase are still elevated, some improvement compared to yesterday, encouraged him to stay without food, he was drinking Pepsi, I educated him on avoiding any soda product Persistent atrial fibrillation, seen by Dr. Zelaya in the past, was on Pradaxa and Xarelto in the past, treated with flecainide in the past, maintained on verapamil and Toprol-XL. continue to monitor heart rate at this time. [id number] score is 1, yearly risk of stroke without oral anticoagulation is 1.3 percent. Currently on Savaysa 60 mg daily, continue to hold oral anticoagulation and monitor Hypertension, monitor blood pressure Morbid obesity, BMI is 63 COPD, obstructive sleep apnea, using C Pap as an outpatient History of knee surgery, hernia repair surgery. Recurrent abdominal pain, persistent, managed by Dr. Devi Clinical Quality Measures DVT/VTE Risk/Contraindication: Risk Factor Score Per Nursin RFS Level Per Nursing on Admit: 3=High RALPH BERGERON MD Dec 19, 2018 10:15
[2018-12-19] MEDS ORDERED: ENOXAPARIN 40 MG/0.4 ML (LOVENOX) SYR SC SCH (11:45)
--- NOTE | 2018-12-19 11:56 | Discharge Summary-Hospitalist ---
Diagnosis/Chief Complaint Date of Admission Dec 17, 2018 at 15:58 Date of Discharge Admission Diagnosis Assessment: Acute gallstone pancreatitis Morbid obesity AF LIZZY Plan: Abx Pain control IVF Limit narcs due to high risk for obesity hypoventilation syndrome causing CO2 retention Discharge Diagnosis (1) Acute gallstone pancreatitis Status: Acute (2) LIZZY (obstructive sleep apnea) Status: Chronic (3) Obesity, morbid, BMI 50 or higher Status: Chronic (4) Abdominal pain Status: Acute (5) Nausea & vomiting Status: Resolved (6) Elevated liver enzymes Status: Acute Discharge Summary Discharge Physical Exam Allergies: Coded Allergies: No Known Drug Allergies (Unverified , 12/17/18) Vitals & I&Os Vital Signs Date Time Temp Pulse Resp B/P (MAP) Pulse Ox O2 Delivery O2 Flow Rate FiO2 12/19/18 08:00 98.5 120 18 132/83 (99) 93 Room Air General Appearance: No Apparent Distress, WD/WN, Chronically ill, Obese Neurologic/Psychiatric: Alert, Oriented x3, No Motor/Sensory Deficits, Normal Mood/Affect Hospital Course Was the Problem List Reviewed?: Yes Hospital course: Patient was admitted for gallstone pancreatitis. Patient nothing by mouth and maintain on IV fluid for supportive care and IV antibiotic coverage. Liver enzymes and pancreatic enzymes improved and Dilaudid was helpful and pain control. Due to the fact that he needed an ERCP he was transferred to [facility] per Dr. Devi order. Labs (last 24 hrs) Laboratory Tests 12/18/18 17:00: Sodium Level 138, Potassium Level 3.9, Chloride Level 103, Carbon Dioxide Level 26, Anion Gap 9, Blood Urea Nitrogen 13, Creatinine 1.06, Estimat Glomerular Filtration Rate > 60, BUN/Creatinine Ratio 12, Glucose Level 122H, Calcium Level 9.1, Corrected Calcium 9.5, Total Bilirubin 6.2H, Aspartate Amino Transf ( AST/SGOT) 255H, Alanine Aminotransferase (ALT/SGPT) 314H, Alkaline Phosphatase 154H, Total Protein 6.7, Albumin 3.5, Amylase Level 317H, Lipase 1140H 12/19/18 06:15: Sodium Level 139, Potassium Level 4.2, Chloride Level 104, Carbon Dioxide Level 24, Anion Gap 11, Blood Urea Nitrogen 13, Creatinine 1.10, Estimat Glomerular Filtration Rate > 60, BUN/Creatinine Ratio 12, Glucose Level 114H, Calcium Level 9.0, Corrected Calcium 9.6, Total Bilirubin 6.5H, Aspartate Amino Transf ( AST/SGOT) 258H, Alanine Aminotransferase (ALT/SGPT) 335H, Alkaline Phosphatase 182H, Total Protein 6.5, Albumin 3.3, Amylase Level 215H, Lipase 831H, White Blood Count 14.7H, Red Blood Count 4.95, Hemoglobin 14.8, Hematocrit 44, Mean Corpuscular Volume 89, Mean Corpuscular Hemoglobin 30, Mean Corpuscular Hemoglobin Concent 34, Red Cell Distribution Width 14.4, Platelet Count 169, Mean Platelet Volume 12.4H, Neutrophils (%) (Auto) 81H, Lymphocytes (%) (Auto) 7L, Monocytes (%) (Auto) 12, Eosinophils (%) (Auto) 0, Basophils (%) (Auto) 0, Neutrophils # (Auto) 11.9H, Lymphocytes # (Auto) 1.0, Monocytes # (Auto) 1.7H, Eosinophils # (Auto) 0.0, Basophils # (Auto) 0.0 Microbiology 12/17/18 Blood Culture - Preliminary, Resulted No growth Patient resulted labs reviewed. Pending Labs Laboratory Tests 12/19/18 06:15: White Blood Count 14.7, Red Blood Count 4.95, Hemoglobin 14.8, Hematocrit 44, Mean Corpuscular Volume 89, Mean Corpuscular Hemoglobin 30, Mean Corpuscular Hemoglobin Concent 34, Red Cell Distribution Width 14.4, Platelet Count 169, Mean Platelet Volume 12.4, Neutrophils (%) (Auto) 81, Lymphocytes (%) (Auto) 7, Monocytes (%) (Auto) 12, Eosinophils (%) (Auto) 0, Basophils (%) (Auto) 0, Neutrophils # (Auto) 11.9, Lymphocytes # (Auto) 1.0, Monocytes # (Auto) 1.7, Eosinophils # (Auto) 0.0, Basophils # (Auto) 0.0, Sodium Level 139, Potassium Level 4.2, Chloride Level 104, Carbon Dioxide Level 24, Anion Gap 11, Blood Urea Nitrogen 13, Creatinine 1.10, Estimat Glomerular Filtration Rate > 60, BUN/ Creatinine Ratio 12, Glucose Level 114, Calcium Level 9.0, Corrected Calcium 9.6 , Total Bilirubin 6.5, Aspartate Amino Transf (AST/SGOT) 258, Alanine Aminotransferase (ALT/SGPT) 335, Alkaline Phosphatase 182, Total Protein 6.5, Albumin 3.3, Amylase Level 215, Lipase 831 Discussion & Recommendations Discharge Planning: <30 minutes discharge planning Discharge Home Medications: Active Scripts Active Reported Men's 50 Plus Multivitamin Tab (Multivit-Min/Folic/Vit K/Lycop) 1 Each Tablet 1 Tab PO DAILY Colace (Docusate Sodium) 100 Mg Capsule 100 Mg PO HS Lisinopril 20 Mg Tablet 20 Mg PO DAILY Savaysa (Edoxaban Tosylate) 60 Mg Tablet 60 Mg PO DAILY Ondansetron HCl 4 Mg Tablet 4 Mg PO TID PRN Magnesium (Magnesium Oxide) 500 Mg Capsule 500 Mg PO DAILY Vitamin B12 (Cyanocobalamin (Vitamin B-12)) 2,500 Mcg Tablet 2,500 Mcg PO DAILY Vitamin D3 (Cholecalciferol (Vitamin D3)) 5,000 Unit Capsule 5,000 Unit PO DAILY Lycopene 10 Mg Capsule 10 Mg PO DAILY Glucosamine Chondroit MSM Tab (Glucosamine/MSM/Chondroitin A) 1 Each Tablet 1 Tab PO DAILY Allopurinol 100 Mg Tablet 100 Mg PO DAILY Verapamil HCl 80 Mg Tablet 80 Mg PO BID Tramadol HCl 50 Mg Tablet 50 Mg PO BID PRN Cyclobenzaprine HCl 10 Mg Tablet 10 Mg PO BID PRN Hydrochlorothiazide 25 Mg Tablet 25 Mg PO DAILY Instructions to patient/family Please see electronic discharge instructions given to patient. Clinical Quality Measures DVT/VTE Risk/Contraindication: Risk Factor Score Per Nursin RFS Level Per Nursing on Admit: 3=High Problem Qualifiers (1) Abdominal pain: Abdominal location: epigastric Qualified Codes: R10.13 - Epigastric pain (2) Nausea & vomiting: Vomiting type: unspecified OLGA GRIMM DO Dec 19, 2018 11:56
[2018-12-19 12:00] VITALS: BP 130/79
[2018-12-19 16:45] VITALS: BP 139/93
--- NOTE | 2018-12-19 17:30 | NUR ---
[facility] here to transport patient to [facility]. Report given to EMS. Report called to Meg MENDEZ at [place].
== END 2018-12-19 17:30 | disposition short-term general hospital (02) | DRG 439 ==
LOC: ER 14:11 → EDUNIT# 14:11 → 4TH 15:58 → UNDOLOA 12-19 17:30 → 4TH 12-19 23:59
PROVIDERS: ADMIT Internal Medicine; ATTEND Internal Medicine
DX: K85.10 Biliary acute pancreatitis without necrosis or infection (principal); K80.20 Calculus of gallbladder without cholecystitis without obstruction; Z68.44 Body mass index [BMI] 60.0-69.9, adult; I48.1 Persistent atrial fibrillation; I10 Essential (primary) hypertension; E66.01 Morbid (severe) obesity due to excess calories; G47.33 Obstructive sleep apnea (adult) (pediatric); J44.9 Chronic obstructive pulmonary disease, unspecified
CPT/HCPCS: 36415; 76705; 80053; 82150; 83605; 83690; 85007; 85025; 85027; 86141; 87040; 93005; 96361; 96365; 96375

== ENCOUNTER → 2021-05-26 | Outpatient (CLI) | payer MEDICARE ==
[~2021-05-26] MED LIST changes: +DOCU-143 PO; -EDOX60TA PO; +EDOX60TA2 PO; +LISI20TA26 PO; +MULT-1104 PO; +MULT-178 PO; +ONDA-105 PO; -TRAM50TA2 PO; +TRM50T PO; -VERA80TA2 PO; +VERA80TA4 PO
== END ==
LOC: CARD 12:00
PROVIDERS: ATTEND Internal Medicine Cardiovascular Disease
DX: I11.9 Hypertensive heart disease without heart failure (principal); I48.91 Unspecified atrial fibrillation
CPT/HCPCS: 93306

== ENCOUNTER → 2021-06-21 | Outpatient (CLI) | payer MEDICARE ==
[~2021-06-21] MED LIST changes: +CATHETER FLUSH 10 ML SYR IV PRN; +DOBUTamine DRIP 250 ML IV ONE; +DOBUTamine DRIP 250 ML IV SCH; +HOLD METFORMIN - RECEIVED CONTRAST 20 ML VIAL IV SCH; +IOHEXOL 350 MG/ML 100 ML (OMNIPAQUE 350) VIAL IV ONE; +NORMAL SALINE 250 ML ONE; +NS (IVPB) 250 ML IV ONE; +NS 100 ML (IVPB) BAG IV ONE; +meTOprolol 5 MG/5 ML (LOPRESSOR) VIAL ONE
[2021-06-21 12:47] LABS: CREATININE SERUM 1.24 MG/DL (0.60-1.30)
[2021-06-21 13:36] VITALS: BP 110/81
[2021-06-21 13:53] VITALS: BP 107/70
--- NOTE | 2021-06-21 14:22 | Diagnostic Imaging Report ---
EXAMINATION: CT angiography neck with and without contrast. TECHNIQUE: After intravenous administration of contrast, thin section axial CT angiography of the neck was performed. Source data was reformatted into 3D MIP projections. All CT scans use one or more of the following dose optimizing techniques: automated exposure control, MA and/or KvP adjustment based on a patient size and exam type, or iterative reconstruction. HISTORY: Hypertension COMPARISON: None available. FINDINGS: The carotid arteries are mildly tortuous but are otherwise normal without stenosis. Vertebral arteries are normal without stenosis. Visualized intracranial vessels are normal. No aneurysm is seen. No lymphadenopathy is seen in the neck. The muscles of the neck are normal. Fascial planes are preserved and the deep spaces of the neck are normal. Limited views of the superior thorax are unremarkable. No osseous lesions or fractures are seen. IMPRESSION: 1. Normal carotid and vertebral arteries. Dictated by: Dictated on workstation # [id number]
== END ==
LOC: CARD 13:15
PROVIDERS: ATTEND Internal Medicine Cardiovascular Disease
DX: I10 Essential (primary) hypertension (principal)
CPT/HCPCS: 70498; 82565; 84520; C8930; 36415